=== PATIENT | male | born 1960 | race Caucasian/White ===

== ENCOUNTER 2025-09-18 01:27 | Emergency (ER) | payer BC, OTHER ==
[~2025-09-18] VITALS: Ht 177.8 cm; Wt 105.3 kg
--- NOTE | 2025-09-18 02:23 | ED.PDOC ---
History of Present Illness HPI Comments 64-year-old male who came to ER for bleeding of the right lower extremity. Patient has history of DVTs, currently on Xarelto. Patient taking a shower earlier, and the medial aspect of his right ankle started bleeding profusely. Patient states he has not taken his Xarelto for the last 2 days because of epistaxis Chief Complaint: Lower Extremity Time Seen by MD: 02:23 Reviewed Notes: Nurses Notes Allergies: Coded Allergies: Minocycline (Verified Allergy, Unknown, 09/18/25) Information Source: Patient Mode of Arrival: Ambulatory Past Medical History Past Medical History (Other): DVT Surgical History (Other): Bilateral knee, and bilateral hip surgery Family History Family History: Reviewed,noncontributory to illness Social History Smoker: Non-Smoker Alcohol: Denies ETOH Use Drugs: Denies Drug Use Lives In: Home Constitutional: denies: chills, diaphoresis, fatigue, fever, malaise, sweats, weakness, others EENTM: denies: blurred vision, double vision, ear bleeding, ear discharge, ear drainage, ear pain, ear ringing, eye pain, eye redness, hearing loss, mouth pa in, mouth swelling, nasal discharge, nose bleeding, nose congestion, nose pain, photophobia, tearing, throat pain, throat swelling, voice changes, others Respiratory: denies: cough, hemoptysis, orthopnea, SOB at rest, shortness of breath, SOB with excertion, stridor, wheezing, others Cardiovascular: denies: chest pain, dizzy spells, diaphoresis, Dyspnea on exertion, edema, irregular heart beat, left arm pain, lightheadedness, palpitations, PND, syncope, others Gastrointestinal: denies: abdomen distended, abdominal pain, blood streaked bowels, constipated, diarrhea, dysphagia, difficulty swallowing, hematemesis, melena, nausea, poor appetite, poor fluid intake, rectal bleeding, rectal pain, vomiting, others Genitourinary: denies: burning, dysuria, flank pain, frequency, hematuria, incontinence, penile discharge, penile sore, pain, testicle pain, testicle swelling, urgency, others Neurological: denies: dizziness, fainting, headache, left sided numbness, left sided weakness, numbness, paresthesia, pre-existing deficit, right sided numbness, right sided weakness, seizure, speech problems, tingling, tremors, weakness, others Musculoskeletal: denies: back pain, gout, joint pain, joint swelling, muscle pain, muscle stiffness, neck pain, others Integumetry: reports: others (Bleeding medial aspect right ankle); denies: bruises, change in color, change in hair/nails, dryness, laceration, lesions, lumps, rash, wounds Allergic/Immunocompromised: denies: Difficulty Healing, Frequent Infections, Hives, Itching, others Hematologic/Lymphatic: denies: anemia, blood clots, easy bleeding, easy bruising, swollen glands, others Endocrine: denies: excessive hunger, excessive sweating, excessive thirst, excessive urination, flushing, intolerance to cold, intolerance to heat, unexplained weight gain, unexplained weight loss, others Psychiatric: denies: anxiety, bipolar disorder, depression, hopeless, panic disorder, schizophrenia, sleepless, suicidal, others Physical Exam General Appearance: No Apparent Distress, Normal HEENT: Normal ENT Inspection, Pharynx Normal, TMs Normal Neck: Full Range of Motion, Non-Tender, Normal, Normal Inspection Respiratory: Chest Non-Tender, Lungs Clear, No Accessory Muscle Use, No Respiratory Distress, Normal Breath Sounds Cardiovascular: No Edema, No JVD, No Murmur, No Gallop, Normal Peripheral Pulses, Regular Rate/Rhythm Breast Exam: Deferred Gastrointestinal: No Organomegaly, Non Tender, No Pulsatile Mass, Normal Bowel Sounds, Soft Genitalia: Deferred Pelvic: Deferred Rectal: Deferred Extremities: No calf tenderness, Normal capillary refill, Normal inspection, Normal range of motion, Non-tender, No pedal edema, Other (Bleeding medial aspect right ankle) Musculoskeletal : Apperance: Normal Neurologic: Alert, distribution supervisor II-XII nml as Tested, No Motor Deficits, Normal Affect, Normal Mood, No Sensory Deficits Cerebellar Function: Normal Reflexes: Normal Skin: Dry, Normal Color, Warm Lymphatic: No Adenopathy Was a procedure done? Was a procedure done?: Yes Sedation Sedation?: No Informed consent obtained: Yes Laceration Repair : Location right ankle Length 1 mm Anesthetic: Lidocaine, With epi Laceration Repair Prep: Betadine Laceration Repair Wound Comple: epidermis/dermis repair Laceration Repair: Number of sutures (1), Skin, SQ, Prolene, Mattress sutures Informed consent obtained: Yes Risks, benefits, and alternati: Yes Differential Dx Considerations may include: Anemia, electrolyte imbalance, varicose veins X-Ray, Labs, Meds, VS Vital Signs Date Time Temp Pulse Resp B/P (MAP) Pulse Ox O2 Delivery O2 Flow Rate FiO2 09/18/25 02:40 61 13 95 Room Air* 0 21 09/18/25 02:40 97.9 61 13 113/67 (82) 95 97.9 09/18/25 01:30 97.9 69 16 124/86 96 97.9 Time of 1ST Reevaluation: 02:19 Reevaluation 1ST: Unchanged Patient Education/Counseling: Diagnosis, Treatment Family Education/Counseling: No Family Present SEPSIS Sepsis Screen Date sepsis recognized/suspect: Sep 18, 2025 Time Sepsis recognized/suspect: 0132 Recent Procedure: No On Antibiotic Therapy: No Respiratory Rate >20: No Heart Rate >90: No Temp<36 C (96.8 F) or >38.3 C: No SBP <90 or MAP <65 mmHG: No New Acute Mental Status Change: No Is the patient on CPAP, BIPAP,: No Physician Orders Laceration Setup (09/18/25 ) Vital Signs Date Time Temp Pulse Resp B/P (MAP) Pulse Ox O2 Delivery O2 Flow Rate FiO2 09/18/25 02:40 61 13 95 Room Air* 0 21 09/18/25 02:40 97.9 61 13 113/67 (82) 95 97.9 09/18/25 01:30 97.9 69 16 124/86 96 97.9 Departure 1 Departure Time of Disposition: 03:00 Impression: Primary Impression: Bleeding from varicose veins of right lower extremity Additional Impression: Varicose vein of leg Disposition: 01 HOME / SELF CARE / HOMELESS Condition: Stable Discharged With: Self, Relative Critical Care Note Critical Care Time?: No Stability Stability form required: No Heart Score Heart Score: Heart Score Response (Comments) Value History N/A 0 EKG N/A 0 Age N/A 0 Risk Factors N/A 0 Troponin N/A 0 Total 0 I personally scribed for LISA SEN MD ([email or web address]) on 09/18/25 at 02:23. Electronically submitted by Jeffrey Conner ([email or web address]). LISA SEN MD Sep 18, 2025 02:23
[2025-09-18 02:40] VITALS: BP 113/67; PULSE 61; RESP 13; TEMP 97.9; O2SAT 95
[2025-09-18] MEDS: LIDOCAINE W/ EPINEPHRINE 1% 20ML VIAL ID ONE (02:41)
== END 2025-09-18 03:07 | disposition home or self-care (01) ==
LOC: ER 01:27
DX: I83.891 Varicose veins of right lower extremity with other complications (principal); Z79.01 Long term (current) use of anticoagulants; Z86.718 Personal history of other venous thrombosis and embolism; Z79.899 Other long term (current) drug therapy
CPT/HCPCS: 12001; 99282; A4649; 12031

== ENCOUNTER 2025-10-06 11:40 | Inpatient (IN) | payer BC ==
[~2025-10-06] VITALS: Ht 177.8 cm; Wt 115.0 kg
[2025-10-06 12:00] VITALS: PULSE 84; RESP 12; O2SAT 95
--- NOTE | 2025-10-06 12:08 | ED.PDOC ---
Musculoskeletal HPI Comments This is a 64 year old male presenting to the ED with chief complaint of right leg redness. Patient reports that since Friday, he has been experiencing worsening redness, swelling, pain, and warmth to his right lower leg. Patient relays that he has history of a DVT in his right leg and is currently Xarelto, however, the last 2 days he has not taken it. Patient denies any numbness, weakness, tingling, chest pain, or SOB. Chief Complaint: Lower Extremity Time Seen by MD: 11:52 Reviewed Notes: Nurses Notes, Medications, Allergies Allergies: Coded Allergies: Minocycline (Verified Allergy, Unknown, 09/18/25) Information Source: Patient Mode of Arrival: Ambulatory Location: Right Extremity Location: Leg Timing: Days Prehospital treatment: None Severity: Moderate Able to Move Extremity: Yes Bear Weight: Limited Pain: Moderate Mechanism: Spontaneous Circumstances: Spontaneous Onset of Symptoms: Spontaneous Symptoms: Swelling, Pain, Erythema, Warmth DVT Risk Factors: DVT Past Medical History PAST MEDICAL HISTORY: DM Past Medical History (Other): DVT Surgical History (Other): Bilateral knee replacement, hip replacement Family History Family History: Reviewed,noncontributory to illness Social History Smoker: Non-Smoker Alcohol: Denies ETOH Use Drugs: Denies Drug Use Lives In: Home Constitutional: denies: chills, diaphoresis, fatigue, fever, malaise, sweats, weakness, others EENTM: denies: blurred vision, double vision, ear bleeding, ear discharge, ear drainage, ear pain, ear ringing, eye pain, eye redness, hearing loss, mouth pain, mouth swelling, nasal discharge, nose bleeding, nose congestion, nose pain, photophobia, tearing, throat pain, throat swelling, voice changes, others Respiratory: denies: cough, hemoptysis, orthopnea, SOB at rest, shortness of breath, SOB with excertion, stridor, wheezing, others Cardiovascular: denies: chest pain, dizzy spells, diaphoresis, Dyspnea on exertion, edema, irregular heart beat, left arm pain, lightheadedness, palpitations, PND, syncope, others Gastrointestinal: denies: abdomen distended, abdominal pain, blood streaked bowels, constipated, diarrhea, dysphagia, difficulty swallowing, hematemesis, melena, nausea, poor appetite, poor fluid intake, rectal bleeding, rectal pain, vomiting, others Genitourinary: denies: burning, dysuria, flank pain, frequency, hematuria, incontinence, penile discharge, penile sore, pain, testicle pain, testicle swelling, urgency, others Neurological: denies: dizziness, fainting, headache, left sided numbness, left sided weakness, numbness, paresthesia, pre-existing deficit, right sided numbness, right sided weakness, seizure, speech problems, tingling, tremors, weakness, others Musculoskeletal: reports: others (Right leg pain and redness); denies: back pain, gout, joint pain, joint swelling, muscle pain, muscle stiffness, neck pain Integumetry: denies: bruises, change in color, change in hair/nails, dryness, laceration, lesions, lumps, rash, wounds, others Allergic/Immunocompromised: denies: Difficulty Healing, Frequent Infections, Hi ves, Itching, others Hematologic/Lymphatic: denies: anemia, blood clots, easy bleeding, easy bruising, swollen glands, others Endocrine: denies: excessive hunger, excessive sweating, excessive thirst, excessive urination, flushing, intolerance to cold, intolerance to heat, unexplained weight gain, unexplained weight loss, others Psychiatric: denies: anxiety, bipolar disorder, depression, hopeless, panic disorder, schizophrenia, sleepless, suicidal, others All Other Systems: Reviewed and Negative Physical Exam General Appearance: No Apparent Distress, Normal HEENT: Normal ENT Inspection, Pharynx Normal, TMs Normal Neck: Full Range of Motion, Non-Tender, Normal, Normal Inspection Respiratory: Chest Non-Tender, Lungs Clear, No Accessory Muscle Use, No Respiratory Distress, Normal Breath Sounds Cardiovascular: No Edema, No JVD, No Murmur, No Gallop, Normal Peripheral Pulses, Regular Rate/Rhythm Breast Exam: Deferred Gastrointestinal: No Organomegaly, Non Tender, No Pulsatile Mass, Normal Bowel Sounds, Soft Genitalia: Deferred Pelvic: Deferred Rectal: Deferred Extremities: Other (Right lower extremity swelling and ecchmosis) Musculoskeletal : Apperance: Normal Neurologic: Alert, mind reader II-XII nml as Tested, No Motor Deficits, Normal Affect, Normal Mood, No Sensory Deficits Cerebellar Function: Normal Reflexes: Normal Skin: Dry, Normal Color, Warm Lymphatic: No Adenopathy Was a procedure done? Was a procedure done?: No Differential Diagnosis EXT Differential Diagnosis: Cellulitis, Deep Vein Thrombosis X-Ray, Labs, Meds, VS Vital Signs Date Time Temp Pulse Resp B/P (MAP) Pulse Ox O2 Delivery O2 Flow Rate FiO2 10/06/25 12:52 72 14 118/67 10/06/25 12:00 84 12 95 Room Air* 0 21 10/06/25 12:00 98.3 84 12 121/64 (83) 95 98.3 10/06/25 11:42 98.1 81 18 112/70 94 98.1 Lab Test 10/06/25 12:38 Range/Units White Blood Count 8.9 4.4-10.8 10^3/uL Red Blood Count 4.66 4.5-5.90 10^6/uL Hemoglobin 12.8 L 13.5-17.5 g/dL Hematocrit 39.0 L 41.0-53.0 % Mean Corpuscular Volume 83.6 80.0-100.0 fL Mean Corpuscular Hemoglobin 27.5 L 28.0-32.0 pg Mean Corpuscular Hemoglobin Concent 32.9 32.0-36.0 g/dL Red Cell Distribution Width 16.2 H 11.8-14.3 % Platelet Count 165 140-450 10^3/uL Mean Platelet Volume 7.4 6.9-10.8 fL Neutrophils (%) (Auto) 79.1 37.0-80.0 % Lymphocytes (%) (Auto) 8.3 L 10.0-50.0 % Monocytes (%) (Auto) 10.2 0.0-12.0 % Eosinophils (%) (Auto) 1.6 0.0-7.0 % Basophils (%) (Auto) 0.8 0.0-2.0 % Neutrophils # (Auto) 7.0 1.6-8.6 10 ^3/uL Lymphocytes # (Auto) 0.7 0.4-5.4 10 ^3/uL Monocytes # (Auto) 0.9 0-1.3 10 ^3/uL Eosinophils # (Auto) 0.1 0-0.8 10 ^3/uL Basophils # (Auto) 0.1 0-0.2 10 ^3/uL Nucleated Red Blood Cells 0.0 % Prothrombin Time Pending Prothrombin Time INR Pending Activated Partial Thromboplast Time Pending Sodium Level Pending Potassium Level Pending Chloride Level Pending Carbon Dioxide Level Pending Anion Gap Pending Blood Urea Nitrogen Pending Creatinine Pending Glomerular Filtration Rate Calc Pending BUN/Creatinine Ratio Pending Serum Glucose Pending Calcium Level Pending Troponin I High Sensitivity Pending B-Type Natriuretic Peptide Pending Current Medications Medications (Trade) Dose Ordered Sig/Gretta Route Start Time Stop Time Status Last Admin Morphine Sulfate 4 mg ONCE ONCE IV 10/06/25 12:15 10/06/25 12:16 DC 10/06/25 12:52 Ondansetron HCl (Zofran) 4 mg ONCE ONCE IV 10/06/25 12:15 10/06/25 12:16 DC 10/06/25 12:52 Time of 1ST Reevaluation: 12:50 Reevaluation 1ST: Unchanged Patient Education/Counseling: Diagnosis, Treatment Family Education/Counseling: No Family Present Departure 1 Departure Time of Disposition: 13:03 (Patient with a DVT that failed outpatient treatment. We will admit patient for further workup and expert consultation) Impression: Primary Impression: Right leg DVT Disposition: ADMITTED INPATIENT Admit to: Med Surg Condition: Guarded Critical Care Note Critical Care Time?: No Stability Stability form required: No Heart Score Heart Score: Heart Score Response (Comments) Value History N/A 0 EKG N/A 0 Age N/A 0 Risk Factors N/A 0 Troponin N/A 0 Total 0 I personally scribed for JUAN READ MD ([email or web address]) on 10/06/25 at 12:08. Electronically submitted by Christian Dickerson ([email or web address]). JUAN READ MD Oct 06, 2025 12:08
[2025-10-06] MEDS: MORPHINE SULFATE 4 MG/ML SYR/VIAL IV ONE (12:52)
[2025-10-06] MEDS: ONDANSETRON HCL 4 MG/2 ML VIAL IV ONE (12:52)
--- NOTE | 2025-10-06 12:55 | DVH ---
Right lower extremity venous duplex Clinical History: right leg pain Comparison: None Technique: Duplex Doppler evaluation of the deep venous system of the right lower extremity from the common femoral vein to the popliteal vein including color Doppler and spectral/pulsed waveform analysis was performed. Findings: The common femoral vein demonstrates appropriate compressibility and waveform variability. There is compressibility/patency of the great saphenous vein at the proximal thigh. The femoral vein demonstrates intraluminal thrombus and noncompressibility. The deep femoral vein demonstrates appropriate compressibility and waveform variability. The popliteal vein demonstrates intraluminal thrombus and noncompressibility. There is normal compressibility at the tibioperoneal trunk. Impression: Partially occlusive positive thrombus in the superficial femoral vein and popliteal vein.
[2025-10-06 12:56] LABS: Hematocrit 39.0 % (41.0-53.0); Hemoglobin 12.8 g/dL (13.5-17.5); Mean Corpuscular Hemoglobin 27.5 pg (28.0-32.0); Mean Corpuscular Volume 83.6 fL (80.0-100.0); Nucleated Red Blood Cells % 0.0 %
[2025-10-06 13:10] LABS: INR 1.37 (0.9-1.15); Partial Thromboplastin Time 44.8 SEC (24.5-34.5); Prothrombin Time 14.1 sec (9.3-11.8)
[2025-10-06 13:31] LABS: Chloride 102 mmol/L (98-107); Sodium 139 mmol/L (136-145)
[2025-10-06 13:32] LABS: Anion Gap 14 (5-15); Calcium 9.0 mg/dL (8.7-10.4); Carbon Dioxide 23 mmol/L (20-31)
[2025-10-06] MEDS ORDERED: GABA-1250 PO (13:32)
[2025-10-06] MEDS ORDERED: AMLO1TAB23 PO (13:32)
[2025-10-06] MEDS ORDERED: HYDR25TA5 PO (13:32)
[2025-10-06] MEDS ORDERED: TAMS0.4C39 PO (13:32)
[2025-10-06] MEDS ORDERED: ROSU10TA64 PO (13:32)
[2025-10-06] MEDS ORDERED: SERT-160 PO (13:32)
[2025-10-06] MEDS ORDERED: LISI40TA16 PO (13:32)
[2025-10-06 13:37] LABS: BUN/Creatinine Ratio 26.4 (10.0-20.0)
--- NOTE | 2025-10-06 13:38 | DVHHP2 ---
History of Present Illness Reason for Visit: Right leg pain History of Present Illness Hany Bach is a 64-year-old male with past medical history of DVT, diabetes, bilateral knee replacement, partial thyroidectomy, and hip replacement who presents to the ED with right leg pain and redness since Friday. Patient reports that he has a history of DVT in his right leg was taking Xarelto but did not take it for the last 2 days. Patient reports that he developed a DVT after his knee surgery in 1999 at [facility], was given warfarin to take then was switched over to Plavix 5-10 years ago, then change to aspirin then 3 years ago was switched to Xarelto. Patient reports that his primary care physician is Dr. No in [place] at [facility]. Patient reports that he does not have a electrical mechanic. He reports that he uses a cane with ambulation. He also reports that he lives at home alone. Patient reports that his right lower extremity was discolored distance 1999 but the last 2 days he states that it has been getting darker and has noticed it has been getting warmer to the touch. Patient reports that he does not use home oxygen but upon evaluation patient on 2 L nasal cannula. Patient denies any recent trauma or injury, recent sick contacts, recent travels, recent ingestion of spoiled food, chest pain, shortness of breath, fever, chills, lightheadedness, weakness, dizziness, abdominal pain, nausea, vomiting, diarrhea, or urinary symptoms. Endocrine: Diabetes Past Medical History DVT Past Surgical History: Other (Partial thyroidectomy, Bilateral knee replacement and hip replacement) Family History: Cancer, Other (Dad with intestinal cancer and mom with Alzheimer's.) Smoke: No ALCOHOL: none Drugs: None Lives: Alone Domestic Violence: Neg Review of Systems Musculoskeletal: leg pain Skin: Other (Right lower extremity discoloration and warmth) Allergies: Coded Allergies: Minocycline (Verified Allergy, Unknown, 09/18/25) Medications Current Medications Medications Dose Ordered Sig/Gretta Route Start Time Stop Time Status Last Admin Dose Admin Heparin Sodium/ Dextrose 250 ml @ 18.54 mls/ hr [id number] IV 10/06/25 13:15 UNV Exam Vital Signs Vital Signs Date Time Temp Pulse Resp B/P (MAP) Pulse Ox O2 Delivery O2 Flow Rate FiO2 10/06/25 12:52 72 14 118/67 10/06/25 12:00 95 Room Air* 0 21 10/06/25 12:00 98.3 98.3 General Appearance: Alert, Oriented X3, Cooperative, No acute distress HEENT: Atraumatic, PERRLA, EOMI Respiratory: Clear to auscultation, Normal air movement Cardiovascular: Regular rate, Normal S1, Normal S2 Abdominal: Normal bowel sounds, Soft Extremities: No cyanosis Neuro: Normal speech, Sensation intact Psych/Mental Status: Mental status NL, Mood NL Labs/Xrays Labs Test 10/06/25 12:38 Range/Units White Blood Count 8.9 4.4-10.8 10^3/uL Red Blood Count 4.66 4.5-5.90 10^6/uL Hemoglobin 12.8 L 13.5-17.5 g/dL Hematocrit 39.0 L 41.0-53.0 % Mean Corpuscular Volume 83.6 80.0-100.0 fL Mean Corpuscular Hemoglobin 27.5 L 28.0-32.0 pg Mean Corpuscular Hemoglobin Concent 32.9 32.0-36.0 g/dL Red Cell Distribution Width 16.2 H 11.8-14.3 % Platelet Count 165 140-450 10^3/uL Mean Platelet Volume 7.4 6.9-10.8 fL Neutrophils (%) (Auto) 79.1 37.0-80.0 % Lymphocytes (%) (Auto) 8.3 L 10.0-50.0 % Monocytes (%) (Auto) 10.2 0.0-12.0 % Eosinophils (%) (Auto) 1.6 0.0-7.0 % Basophils (%) (Auto) 0.8 0.0-2.0 % Neutrophils # (Auto) 7.0 1.6-8.6 10 ^3/uL Lymphocytes # (Auto) 0.7 0.4-5.4 10 ^3/uL Monocytes # (Auto) 0.9 0-1.3 10 ^3/uL Eosinophils # (Auto) 0.1 0-0.8 10 ^3/uL Basophils # (Auto) 0.1 0-0.2 10 ^3/uL Nucleated Red Blood Cells 0.0 % Right lower extremity venous duplex Clinical History: right leg pain Comparison: None Technique: Duplex Doppler evaluation of the deep venous system of the right lower extremity from the common femoral vein to the popliteal vein including color Doppler and spectral/pulsed waveform analysis was performed. Findings: The common femoral vein demonstrates appropriate compressibility and waveform variability. There is compressibility/patency of the great saphenous vein at the proximal thigh. The femoral vein demonstrates intraluminal thrombus and noncompressibility. The deep femoral vein demonstrates appropriate compressibility and waveform variability. The popliteal vein demonstrates intraluminal thrombus and noncompressibility. There is normal compressibility at the tibioperoneal trunk. Impression: Partially occlusive positive thrombus in the superficial femoral vein and popliteal vein. SEPSIS Sepsis Screen Date sepsis recognized/suspect: Oct 06, 2025 Time Sepsis recognized/suspect: 1200 Recent Procedure: No On Antibiotic Therapy: No Respiratory Rate >20: No Heart Rate >90: No Temp<36 C (96.8 F) or >38.3 C: No SBP <90 or MAP <65 mmHG: No New Acute Mental Status Change: No Is the patient on CPAP, BIPAP,: No Physician Orders PTPTT (10/06/25 12:10) Basic Metabolic Panel (10/06/25 12:10) Troponin-I Hs (10/06/25 12:10) B-Type Natriuretic Peptide (10/06/25 12:10) Rt Lower Dvt (10/06/25 12:10) Platelet Monitoring (10/06/25 13:01) Vte Protocol Initiated (10/06/25 13:01) Heparin Per Standardized Proce (10/06/25 13:01) Discontinue All Im Injections (10/06/25 13:01) Partial Thromboplastin Time (10/06/25 13:01) Heparin Sodium (Porcine) (10/06/25 13:15) Heparin Drip/D5w 100units/Ml (10/06/25 13:15) Npo (Nothing By Mouth) Diet (10/06/25 Lunch) Obtain: (10/06/25 13:01) Consult Vascular/Endovascular (10/06/25 13:01) Vital Signs Date Time Temp Pulse Resp B/P (MAP) Pulse Ox O2 Delivery O2 Flow Rate FiO2 10/06/25 12:52 72 14 118/67 10/06/25 12:00 84 12 95 Room Air* 0 21 10/06/25 12:00 98.3 84 12 121/64 (83) 95 98.3 10/06/25 11:42 98.1 81 18 112/70 94 98.1 Laboratory Tests Test 10/06/25 12:38 White Blood Count 8.9 10^3/uL (4.4-10.8) Medications Medications Dose Ordered Sig/Gretta Route Start Time Stop Time Status Last Admin Dose Admin Morphine Sulfate 4 mg ONCE ONCE IV 10/06/25 12:15 10/06/25 12:16 DC 10/06/25 12:52 4 MG Ondansetron HCl 4 mg ONCE ONCE IV 10/06/25 12:15 10/06/25 12:16 DC 10/06/25 12:52 4 MG Assessment/Plan Assessment/Plan Assessment Right lower extremity pain secondary to DVT Acute hypoxic respiratory failure on supplemental oxygen Rule out PAD Obesity History of diabetes History of bilateral knee replacement History of hip replacement History of partial thyroidectomy Plan Admit to same day surgery center Supplemental O2, wean as tolerated Antiemetics Pain management Heparin started in ED, heparin drip Hemoglobin A1c ISS and Accu-Cheks Arterial duplex ordered NPO IV fluids Home medications reconciled DVT prophylaxis-heparin drip PUD prophylaxis-not indicated history of GERD or GI bleed Discussed plan of care with patient and nurse Vascular consulted by ED Counseled patient on lifestyle modifications, diet, and exercise [id number] Preventive counseling healthy eating habits, physical activity, and regular checkups Plan discussed with: Patient Date of Service: Oct 06, 2025 Billing Provider: JOON PINZON Common Visit Codes: 66738-ALOVRBV INP/OBS CARE (HIGH) Secondary Visit Codes: 59435-[id number] COUNSELING IND JOON PINZON Oct 06, 2025 13:37
[2025-10-06 13:45] LABS: Blood Urea Nitrogen 28 mg/dL (9-23); Glucose 163 mg/dL (74-106); Potassium 3.4 mmol/L (3.5-5.1)
[2025-10-06] MEDS ORDERED: DEXTROSE (50%) 50ML SYRG IV PRN (13:45)
[2025-10-06] MEDS: HEPARIN SODIUM (PORCINE) 5000 UNITS/ML 1ML VIAL IV ONE (13:57)
[2025-10-06] MEDS: HEPARIN DRIP/D5W 100UNITS/ML 250 ML IV SCH ×2 (14:06→22:39)
[2025-10-06 15:27] LABS: Urine Protein, UAD Negative (Negative)
[2025-10-06] MEDS: SODIUM CHLORIDE 0.9% 1,000 ML IV SCH (15:33)
[2025-10-06 15:36] LABS: Benzodiazephine Screen, Urine Neg (NEGATIVE)
[2025-10-06 15:37] LABS: Amphetamine Screen, Urine Neg (NEGATIVE); Barbiturate Scree,Urine Neg (NEGATIVE); Cannabinoid Screen, Urine Pos (NEGATIVE); Cocaine Screen, Urine Neg (NEGATIVE); Opiate Scree,Urine Neg (NEGATIVE); Phencyclidine Screen, Urine Neg (NEGATIVE)
[2025-10-06] MEDS: InsuLIN REG 1unit/0.01ml Soln (100units/ml) SC SCH (18:00)
[2025-10-06] MEDS: ACCU-CHEK COMFORT CURVE STRIP VI SCH (18:13)
--- NOTE | 2025-10-06 18:18 | DVH ---
Indication: r/o pad Technique: Real- time ultrasound images of the lower extremity with grayscale, color, and spectral wave Doppler. Comparison: None Findings: Biphasic/ triphasic waveforms right CRAB CATCHER, SFA, popliteal, anterior tibial, dorsalis pedis arteries. Right inguinal lymph node with fatty hilum measuring 3.8 x 1.3 cm. Peak systolic velocities are as follows (in cm/s): Right: Common femoral artery: 124 Profunda femoris: 60 Proximal superficial femoral: 109 Mid superficial femoral artery: 109 Distal superficial femoral artery: 117 Popliteal artery: 94 Posterior tibial artery: 76 Anterior tibial artery: 65 Dorsalis pedis artery: 80 Posterior tibial: 134 Impression: No hemodynamically significant stenosis in the right lower extremity. Right inguinal lymphadenopathy.
[2025-10-06] MEDS: ONDANSETRON HCL 4 MG/2 ML VIAL IV PRN (18:29)
[2025-10-06] MEDS: MORPHINE SULFATE INJ 2 MG/ml SYRG IV PRN (18:30)
[2025-10-06 19:00] VITALS: BP 127/75; PULSE 64; RESP 18; TEMP 98; O2SAT 95
[2025-10-06] MEDS ORDERED: LEVO125T7 PO (19:58)
[2025-10-06] MEDS ORDERED: OMEP20TA PO (20:00)
[2025-10-06 20:11] VITALS: PULSE 64; RESP 18; O2SAT 95
[2025-10-06 21:00] VITALS: BP 117/83; PULSE 63; RESP 18; TEMP 98.3; O2SAT 93
[2025-10-06] MEDS: ATORVASTATIN 20 MG TAB PO SCH (21:31)
[2025-10-06] MEDS: TAMSULOSIN HYDROCHLORIDE 0.4 MG CAP PO ONE (21:31)
[2025-10-06 21:51] LABS: INR 1.14 (0.9-1.15); Prothrombin Time 11.9 sec (9.3-11.8)
[2025-10-06 22:21] LABS: Partial Thromboplastin Time 75.9 SEC (24.5-34.5)
[2025-10-07] VITALS (8 sets, daily range): BP systolic 115–132; BP diastolic 50–88; PULSE 62–76; RESP 17–20; TEMP 97.8–98.4; O2SAT 90–98
[2025-10-07] MEDS: HYDROcodone-ACET 5/325MG TAB PO PRN (01:02)
[2025-10-07] MEDS: LEVOTHYROXINE SODIUM 50 MCG TAB PO SCH (06:01)
[2025-10-07 06:08] LABS: Hematocrit 39.6 % (41.0-53.0); Hemoglobin 13.3 g/dL (13.5-17.5); Mean Corpuscular Hemoglobin 27.9 pg (28.0-32.0); Mean Corpuscular Volume 83.4 fL (80.0-100.0); Nucleated Red Blood Cells % 0.0 %
[2025-10-07 06:24] LABS: INR 1.11 (0.9-1.15); Partial Thromboplastin Time 50.7 SEC (24.5-34.5); Prothrombin Time 11.6 sec (9.3-11.8)
[2025-10-07 06:38] LABS: Alanine Aminotransferase 19 U/L (7-40); Albumin 4.0 g/dL (3.2-4.8); Alkaline Phosphatase 76 U/L (46-116); Anion Gap 12 (5-15); BUN/Creatinine Ratio 25.0 (10.0-20.0); Bilirubin, Total 0.6 mg/dL (0.2-1.0); Blood Urea Nitrogen 21 mg/dL (9-23); Calcium 9.0 mg/dL (8.7-10.4); Carbon Dioxide 25 mmol/L (20-31); Chloride 102 mmol/L (98-107); Glucose 94 mg/dL (74-106); Potassium 3.5 mmol/L (3.5-5.1); Sodium 139 mmol/L (136-145); Total Protein 7.4 g/dL (5.7-8.2)
[2025-10-07] MEDS: TAMSULOSIN HYDROCHLORIDE 0.4 MG CAP PO SCH (08:21)
[2025-10-07] MEDS: GABAPENTIN 300 MG CAP PO SCH (09:45)
[2025-10-07] MEDS: hydroCHLOROthiazide 25 MG TAB PO SCH (09:46)
[2025-10-07] MEDS: LISINOPRIL 20 MG TAB PO SCH (09:46)
[2025-10-07] MEDS: SERTRALINE HCL 50 MG TAB PO SCH (09:46)
[2025-10-07] MEDS ORDERED: TAMSULOSIN HYDROCHLORIDE 0.4 MG CAP PO SCH (10:00)
[2025-10-07] MEDS ORDERED: PATIENTS OWN MEDICATION (Amlodipine Besylate 1 TAB) PO SCH (10:00)
[2025-10-07] MEDS ORDERED: PATIENTS OWN MEDICATION (Lisinopril 1 TAB) PO SCH (10:00)
[2025-10-07] MEDS ORDERED: PATIENTS OWN MEDICATION (Sertraline Hcl 1 TAB) PO SCH (10:00)
[2025-10-07 12:29] LABS: INR 1.05 (0.9-1.15); Partial Thromboplastin Time 47.1 SEC (24.5-34.5); Prothrombin Time 11.1 sec (9.3-11.8)
--- NOTE | 2025-10-07 13:01 | CONS ---
Pharmacy Clinical Information: INCREASE HEPARIN RATE TO 18 ML/HR DUE TO APTT OF 47.1 ON 10/07 1035 PER RX P ROTOCOL. NEXT APTT 6 HOURS FROM THE START OF NEW HEPARIN RATE. DILMA HENDERSON CONFIRMED AND READ BACK HEDY SHARP PHARMACIST Oct 07, 2025 13:01
[2025-10-07] MEDS: HEPARIN DRIP/D5W 100UNITS/ML 250 ML IV SCH ×2 (13:06→23:45)
--- NOTE | 2025-10-07 17:14 | DVHPNRES ---
Progress Note Date Seen: Oct 07, 2025 Resident Creating Document: SOCORRO ALMODOVAR RESIDENT Medical Necessity Reason Pt with a Central, PICC or Fol: No Subjective Review of Systems PowerHany is a 64-year-old male with past medical history of DVT in 1999 and in 2014 now on Xarelto, diabetes mellitus, hypertension, dyslipidemia, depression presented with complaints of pain and swelling in the right lower limb since Friday. He had a swelling in the right groin initially. Patient says that he put a compression stocking in and when he removed 2 days later he noticed the redness and swelling in the calf. He had an episode of epistaxis and bleeding from the foot in the past week so he had stopped the Xarelto PMHx: Xarelto, diabetes mellitus, hypertension, dyslipidemia, depression PSHx: Thyroidectomy, knee and hip replacement Family history: cancer in father Social history: denies smoking alcohol or drug use Allergic history: minocycline General: patient denies fever, fatigue, weaknes, sweating, any recent changes in appetite and weight HEENT: No headaches, visiual changes, hearing loss, tinnitus, nasal congestion and discharge, and sore throat. Cardiovascular: Denies chest pain, palpitations, dyspnea on exertion, orthopnea, or claudication. Respiratory: No cough, and wheezing. Gastrointestinal: Denies nausea, vomiting, dysphagia, odynophagia, heartburn, abdominal pain, flatulence, bloating, diarrhea, constipation, change in stool, or blood in stool. Genitourinary: No dysuria, hematuria, discharge, frequency, urgency, nocturia, incontinence, and urinary retention. Endocrine: No heat or cold intolerance, polydipsia, polyuria, and polyphagia. Neurological: No dizziness, extremity weakness and numbness, tremors, gait disturbance, seizures, and memory impairment. Psychiatric: Denies depression, anxiety,or insomnia. Musculoskeletal: complains of pain and swelling in the right leg Skin: No rashes, itching, skin lesion, changes in hair, nail, skin texture and breast. Hematologic/Lymphatic: Denies easy bruising, bleeding tendencies, or lymph node enlargement. Objective vital signs Vital Sign Date Time Temp Pulse Resp B/P (MAP) Pulse Ox O2 Delivery O2 Flow Rate FiO2 10/07/25 12:57 98.2 67 17 116/75 (89) 93 98.2 10/07/25 08:28 Room Air* 0 21 Total Intake and Output 10/06/25 10/06/25 10/07/25 15:00 23:00 07:00 Intake Total 315 ml 80 ml Output Total 400 ml 400 ml Balance -85 ml -320 ml medications Current Medications Medications Dose Ordered Sig/Gretta Route Start Time Stop Time Status Last Admin Dose Admin Diagnostic Test (Pha) 1 strip Q6HR 10/06/25 18:00 10/07/25 11:56 1 STRIP Insulin Human Regular Q6HR SC 10/06/25 18:00 Dextrose 50 ml UD PRN IV 10/06/25 13:45 Acetaminophen/ Hydrocodone Bitart 1 tab Q4HP PRN PO 10/06/25 13:45 10/07/25 12:00 1 TAB Ondansetron HCl 4 mg Q4HP PRN IV 10/06/25 13:45 10/06/25 18:29 4 MG Acetaminophen 650 mg Q6HP PRN PO 10/06/25 13:45 Morphine Sulfate 2 mg Q4HPRN PRN IV 10/06/25 13:45 10/06/25 18:30 2 MG Gabapentin 300 mg DAILY PO 10/07/25 10:00 10/07/25 09:45 300 MG Hydrochlorothiazide 25 mg DAILY PO 10/07/25 10:00 10/07/25 09:46 25 MG Patient Own Medication 1 tab DAILY PO 10/07/25 10:00 UNV Patient Own Medication 1 tab DAILY PO 10/07/25 10:00 UNV Patient Own Medication 1 tab DAILY PO 10/07/25 10:00 UNV Atorvastatin Calcium 10 mg HS PO 10/06/25 22:00 10/06/25 21:31 10 MG Amlodipine Besylate 10 mg DAILY PO 10/07/25 10:00 10/07/25 09:46 10 MG Lisinopril 40 mg DAILY PO 10/07/25 10:00 10/07/25 09:46 40 MG Sertraline HCl 100 mg DAILY PO 10/07/25 10:00 10/07/25 09:46 100 MG Tamsulosin HCl 0.4 mg BIDPC PO 10/07/25 09:00 10/07/25 08:21 0.4 MG Levothyroxine Sodium 125 mcg QAM@0600 PO 10/07/25 06:00 10/07/25 06:01 125 MCG Heparin Sodium/ Dextrose 250 ml @ 18 mls/hr [id number] IV 10/07/25 13:00 10/07/25 13:06 18 MLS/HR Examination General Appearance: Alert, Oriented X3, Cooperative, No acute distress HEENT: Atraumatic, PERRLA, EOMI, Mucous membrane moist/pink Respiratory: Clear to auscultation, Normal air movement Cardiovascular: Regular rate, Normal S1, Normal S2, No murmurs, no chest wall tenderness Abdominal: Normal bowel sounds, Soft, No tenderness, No hepatospenomegaly, No masses Extremities: tenderness in the calf Skin: No rashes, No breakdown, No significant lesion Neuro: Normal gait, Normal speech, Strength at 5/5 X4 ext, Normal tone, Sensation intact, Cranial nerves 3-12 NL, Reflexes 2+ Psych/Mental Status: Mental status NL, Mood NL laboratory and microbiology Laboratory Tests 10/07/25 05:33 Test 10/07/25 05:33 Range/Units Serum Glucose 94 74-106 mg/dL Problem List/Assessment/Plan Problem List/Assessment/Plan Assessment and plan DVT Acute hypoxic respiratory failure on supplemental oxygen Ruled out PAD Ruled out PE Admit to med surge telemetry No compressions in the leg Heparin drip Negative CT pulmonary angiography Supplemental O2, wean as tolerated Antiemetics Pain management Heparin started in ED, heparin drip Hemoglobin A1c ISS and Accu-Cheks Arterial duplex ordered NPO IV fluids Obesity Counseled on the importance of weight loss, exercise and dietary regimen Dyslipidemia Continue home medications Essential hypertension Continue home medications Target in-hospital blood pressure below 140/90 Type 2 diabetes mellitus Target in-hospital blood glucose between 140-180 Follow blood glucose levels History of bilateral knee replacement History of hip replacement Outpatient follow up with PCP on discharge History of partial thyroidectomy Outpatient follow up with PCP on discharge Goals of care discussed full code Case discussed with Dr. Whipple Plan discussed with: Patient Date of Service: Oct 07, 2025 Billing Provider: STEF LI MD Common Visit Codes: [id number] INP/OBS CARE(HIGH) SOCORRO ALMODOVAR RESIDENT Oct 07, 2025 17:14
[2025-10-07 19:36] LABS: INR 1.01 (0.9-1.15); Partial Thromboplastin Time 39.3 SEC (24.5-34.5); Prothrombin Time 10.7 sec (9.3-11.8)
[2025-10-08] VITALS (8 sets, daily range): BP systolic 112–131; BP diastolic 66–81; PULSE 59–77; RESP 17–20; TEMP 98–98.6; O2SAT 91–95
[2025-10-08] MEDS: TEMAZEPAM 15 MG CAP ONE (00:05)
[2025-10-08] MEDS: KETOROLAC TROMETH 30 MG/ML 1ML VIAL ONE (00:05)
[2025-10-08] MEDS: TEMAZEPAM 15 MG CAP PO PRN (00:08)
[2025-10-08] MEDS: KETOROLAC TROMETH 30 MG/ML 1ML VIAL IV ONE (00:09)
[2025-10-08 05:41] LABS: Hematocrit 37.0 % (41.0-53.0); Hemoglobin 12.2 g/dL (13.5-17.5); Mean Corpuscular Hemoglobin 27.7 pg (28.0-32.0); Mean Corpuscular Volume 84.0 fL (80.0-100.0); Nucleated Red Blood Cells % 0.0 %
[2025-10-08 05:51] LABS: INR 1.0 (0.9-1.15); Partial Thromboplastin Time 53.0 SEC (24.5-34.5); Prothrombin Time 10.6 sec (9.3-11.8)
[2025-10-08 06:03] LABS: Alanine Aminotransferase 18 U/L (7-40); Albumin 3.7 g/dL (3.2-4.8); Alkaline Phosphatase 74 U/L (46-116); Anion Gap 8 (5-15); BUN/Creatinine Ratio 19.8 (10.0-20.0); Bilirubin, Total 0.3 mg/dL (0.2-1.0); Blood Urea Nitrogen 22 mg/dL (9-23); Calcium 8.6 mg/dL (8.7-10.4); Carbon Dioxide 27 mmol/L (20-31); Chloride 101 mmol/L (98-107); Glucose 179 mg/dL (74-106); Potassium 3.3 mmol/L (3.5-5.1); Sodium 136 mmol/L (136-145); Total Protein 6.9 g/dL (5.7-8.2)
[2025-10-08 12:04] LABS: INR 1.03 (0.9-1.15); Partial Thromboplastin Time 62.3 SEC (24.5-34.5); Prothrombin Time 10.9 sec (9.3-11.8)
[2025-10-08] MEDS: POTASSIUM EFFERVESENT TAB 25 MEQ PO ONE (13:35)
[2025-10-08] MEDS: POTASSIUM EFFERVESENT TAB 25 MEQ ONE (13:35)
--- NOTE | 2025-10-08 15:26 | DVHPNRES ---
Progress Note Date Seen: Oct 08, 2025 Resident Creating Document: SOCORRO ALMODOVAR Medical Necessity Reason Pt with a Central, PICC or Fol: No Subjective Review of Systems Patient seen at bedside. Requesting for meloxicam. Difficulty ambulating, PT evaluation pending. On heparin drip. Plan to start Cymbalta if pain not under control tomorrow. Hany Bach is a 64-year-old male with past medical history of DVT in 1999 and in 2014 now on Xarelto, diabetes mellitus, hypertension, dyslipidemia, depression presented with complaints of pain and swelling in the right lower limb since Friday. He had a swelling in the right groin initially. Patient says that he put a compression stocking in and when he removed 2 days later he noticed the redness and swelling in the calf. He had an episode of epistaxis and bleeding from the foot in the past week so he had stopped the Xarelto PMHx: Xarelto, diabetes mellitus, hypertension, dyslipidemia, depression PSHx: Thyroidectomy, knee and hip replacement Family history: cancer in father Social history: denies smoking alcohol or drug use Allergic history: minocycline General: patient denies fever, fatigue, weaknes, sweating, any recent changes in appetite and weight HEENT: No headaches, visiual changes, hearing loss, tinnitus, nasal congestion and discharge, and sore throat. Cardiovascular: Denies chest pain, palpitations, dyspnea on exertion, orthopnea, or claudication. Respiratory: No cough, and wheezing. Gastrointestinal: Denies nausea, vomiting, dysphagia, odynophagia, heartburn, abdominal pain, flatulence, bloating, diarrhea, constipation, change in stool, or blood in stool. Genitourinary: No dysuria, hematuria, discharge, frequency, urgency, nocturia, incontinence, and urinary retention. Endocrine: No heat or cold intolerance, polydipsia, polyuria, and polyphagia. Neurological: No dizziness, extremity weakness and numbness, tremors, gait disturbance, seizures, and memory impairment. Psychiatric: Denies depression, anxiety,or insomnia. Musculoskeletal: complains of pain and swelling in the right leg Skin: No rashes, itching, skin lesion, changes in hair, nail, skin texture and breast. Hematologic/Lymphatic: Denies easy bruising, bleeding tendencies, or lymph node enlargement. Objective vital signs Vital Sign Date Time Temp Pulse Resp B/P (MAP) Pulse Ox O2 Delivery O2 Flow Rate FiO2 10/08/25 13:00 98.3 65 17 129/73 (91) 92 98.3 10/08/25 08:05 Room Air* 0 21 Total Intake and Output 10/07/25 10/07/25 10/08/25 15:00 23:00 07:00 Intake Total 504 ml 1890 ml 250 ml Output Total 400 ml Balance 504 ml 1890 ml -150 ml medications Current Medications Medications Dose Ordered Sig/Gretta Route Start Time Stop Time Status Last Admin Dose Admin Diagnostic Test (Pha) 1 strip Q6HR 10/06/25 18:00 10/08/25 12:00 1 STRIP Insulin Human Regular Q6HR SC 10/06/25 18:00 10/08/25 12:00 2 UNITS Dextrose 50 ml UD PRN IV 10/06/25 13:45 Acetaminophen/ Hydrocodone Bitart 1 tab Q4HP PRN PO 10/06/25 13:45 10/08/25 13:35 1 TAB Ondansetron HCl 4 mg Q4HP PRN IV 10/06/25 13:45 10/06/25 18:29 4 MG Acetaminophen 650 mg Q6HP PRN PO 10/06/25 13:45 Morphine Sulfate 2 mg Q4HPRN PRN IV 10/06/25 13:45 10/08/25 05:19 2 MG Gabapentin 300 mg DAILY PO 10/07/25 10:00 10/08/25 09:21 300 MG Hydrochlorothiazide 25 mg DAILY PO 10/07/25 10:00 10/08/25 09:22 25 MG Patient Own Medication 1 tab DAILY PO 10/07/25 10:00 UNV Patient Own Medication 1 tab DAILY PO 10/07/25 10:00 UNV Patient Own Medication 1 tab DAILY PO 10/07/25 10:00 UNV Atorvastatin Calcium 10 mg HS PO 10/06/25 22:00 10/07/25 23:53 10 MG Amlodipine Besylate 10 mg DAILY PO 10/07/25 10:00 10/08/25 09:23 10 MG Lisinopril 40 mg DAILY PO 10/07/25 10:00 10/08/25 09:23 40 MG Sertraline HCl 100 mg DAILY PO 10/07/25 10:00 10/08/25 09:24 100 MG Tamsulosin HCl 0.4 mg BIDPC PO 10/07/25 09:00 10/08/25 09:21 0.4 MG Levothyroxine Sodium 125 mcg QAM@0600 PO 10/07/25 06:00 10/08/25 05:13 125 MCG Temazepam 15 mg HSPRN PRN PO 10/07/25 22:15 10/08/25 00:08 15 MG Heparin Sodium/ Dextrose 250 ml @ 20 mls/hr [id number] IV 10/07/25 23:00 10/08/25 05:40 20 MLS/HR Pantoprazole Sodium 40 mg DAILY@0600 PO 10/09/25 06:00 Examination General Appearance: Alert, Oriented X3, Cooperative, No acute distress HEENT: Atraumatic, PERRLA, EOMI, Mucous membrane moist/pink Respiratory: Clear to auscultation, Normal air movement Cardiovascular: Regular rate, Normal S1, Normal S2, No murmurs, no chest wall tenderness Abdominal: Normal bowel sounds, Soft, No tenderness, No hepatospenomegaly, No masses Extremities: tenderness in the calf Skin: No rashes, No breakdown, No significant lesion Neuro: Normal gait, Normal speech, Strength at 5/5 X4 ext, Normal tone, Sensation intact, Cranial nerves 3-12 NL, Reflexes 2+ Psych/Mental Status: Mental status NL, Mood NL laboratory and microbiology Laboratory Tests 10/08/25 04:55 Test 10/08/25 04:55 Range/Units Serum Glucose 179 H 74-106 mg/dL Problem List/Assessment/Plan Problem List/Assessment/Plan Assessment and plan DVT Acute hypoxic respiratory failure on supplemental oxygen Ruled out PAD Ruled out PE Admit to med surge telemetry No compressions in the leg Heparin drip Negative CT pulmonary angiography Supplemental O2, wean as tolerated Antiemetics Pain management Heparin started in ED, heparin drip Hemoglobin A1c ISS and Accu-Cheks Arterial duplex ordered NPO IV fluids Meloxicam PT eval Obesity Counseled on the importance of weight loss, exercise and dietary regimen Dyslipidemia Continue home medications Essential hypertension Continue home medications Target in-hospital blood pressure below 140/90 Type 2 diabetes mellitus Target in-hospital blood glucose between 140-180 Follow blood glucose levels History of bilateral knee replacement History of hip replacement Outpatient follow up with PCP on discharge History of partial thyroidectomy Outpatient follow up with PCP on discharge Goals of care discussed full code Case discussed with Dr. Whipple Plan discussed with: Patient My Orders My Orders Orders - SOCORRO ALMODOVAR Procedure Category Date Status Time Complete Blood Count LAB 10/09/25 Verified 04:00 Comprehensive LAB 10/09/25 Verified Metabolic Panel 04:00 Pantoprazole Tablet PHA 10/09/25 In Process (Protonix Tablet) 06:00 Pt Request For Service PT 10/08/25 Logged 12:35 Date of Service: Oct 08, 2025 Billing Provider: STEF LI MD Common Visit Codes: [id number] INP/OBS CARE(HIGH) SOCORRO ALMODOVAR Oct 08, 2025 15:26
[2025-10-08 17:54] LABS: INR 1.03 (0.9-1.15); Partial Thromboplastin Time 59.5 SEC (24.5-34.5); Prothrombin Time 10.9 sec (9.3-11.8)
[2025-10-09] VITALS (8 sets, daily range): BP systolic 117–144; BP diastolic 72–88; PULSE 68–74; RESP 16–18; TEMP 97.9–98.6; O2SAT 90–94
[2025-10-09] MEDS: PANTOPRAZOLE 40 MG TAB PO ONE (05:05)
[2025-10-09] MEDS: PANTOPRAZOLE 40 MG TAB PO SCH (05:16)
[2025-10-09 07:17] LABS: Hematocrit 37.1 % (41.0-53.0); Hemoglobin 12.3 g/dL (13.5-17.5); Mean Corpuscular Hemoglobin 27.3 pg (28.0-32.0); Mean Corpuscular Volume 82.7 fL (80.0-100.0); Nucleated Red Blood Cells % 0.0 %
[2025-10-09 07:37] LABS: INR 1.06 (0.9-1.15); Partial Thromboplastin Time 54.4 SEC (24.5-34.5); Prothrombin Time 11.2 sec (9.3-11.8)
[2025-10-09 07:50] LABS: Alanine Aminotransferase 15 U/L (7-40); Alkaline Phosphatase 75 U/L (46-116); Anion Gap 13 (5-15); BUN/Creatinine Ratio 18.6 (10.0-20.0); Blood Urea Nitrogen 16 mg/dL (9-23); Calcium 9.0 mg/dL (8.7-10.4); Carbon Dioxide 27 mmol/L (20-31); Potassium 3.6 mmol/L (3.5-5.1); Sodium 138 mmol/L (136-145); Total Protein 7.3 g/dL (5.7-8.2)
[2025-10-09 07:51] LABS: Albumin 3.9 g/dL (3.2-4.8)
[2025-10-09 07:52] LABS: Bilirubin, Total 0.4 mg/dL (0.2-1.0)
[2025-10-09 07:55] LABS: Chloride 98 mmol/L (98-107); Glucose 126 mg/dL (74-106)
[2025-10-09] MEDS ORDERED: IBUPROFEN 600 MG TAB PO SCH (10:00)
--- NOTE | 2025-10-09 13:49 | DVHPNRES ---
Progress Note Date Seen: Oct 09, 2025 Resident Creating Document: ALISHA DOWNS RESDIENT Medical Necessity Reason Pt with a Central, PICC or Fol: No Subjective Review of Systems Hany Bach is a 64-year-old male with past medical history of DVT in 1999 and in 2014 now on Xarelto, diabetes mellitus, hypertension, dyslipidemia, depression presented with complaints of pain and swelling in the right lower limb since Friday. He had a swelling in the right groin initially. Patient says that he put a compression stocking in and when he removed 2 days later he noticed the redness and swelling in the calf. He had an episode of epistaxis and bleeding from the foot in the past week so he had stopped the Xarelto 10/09, Patient seen and examined at the bedside. Patient is feeling better since yesterday, still complained of mild leg pain. Physical therapy evaluation consulted. Objective vital signs Vital Sign Date Time Temp Pulse Resp B/P (MAP) Pulse Ox O2 Delivery O2 Flow Rate FiO2 10/09/25 12:49 98.3 70 16 144/85 (104) 92 98.3 10/09/25 08:00 Room Air* 0 21 Total Intake and Output 10/08/25 10/08/25 10/09/25 15:00 23:00 07:00 Intake Total 1100 ml 500 ml Balance 1100 ml 500 ml medications Current Medications Medications Dose Ordered Sig/Gretta Route Start Time Stop Time Status Last Admin Dose Admin Diagnostic Test (Pha) 1 strip Q6HR 10/06/25 18:00 10/09/25 12:21 1 STRIP Insulin Human Regular Q6HR SC 10/06/25 18:00 10/09/25 05:28 2 UNITS Dextrose 50 ml UD PRN IV 10/06/25 13:45 Acetaminophen/ Hydrocodone Bitart 1 tab Q4HP PRN PO 10/06/25 13:45 10/09/25 09:21 1 TAB Ondansetron HCl 4 mg Q4HP PRN IV 10/06/25 13:45 10/06/25 18:29 4 MG Acetaminophen 650 mg Q6HP PRN PO 10/06/25 13:45 Morphine Sulfate 2 mg Q4HPRN PRN IV 10/06/25 13:45 10/08/25 20:05 2 MG Hydrochlorothiazide 25 mg DAILY PO 10/07/25 10:00 10/09/25 09:22 25 MG Patient Own Medication 1 tab DAILY PO 10/07/25 10:00 UNV Patient Own Medication 1 tab DAILY PO 10/07/25 10:00 UNV Patient Own Medication 1 tab DAILY PO 10/07/25 10:00 UNV Atorvastatin Calcium 10 mg HS PO 10/06/25 22:00 10/08/25 23:04 10 MG Amlodipine Besylate 10 mg DAILY PO 10/07/25 10:00 10/09/25 09:22 10 MG Lisinopril 40 mg DAILY PO 10/07/25 10:00 10/09/25 09:22 40 MG Sertraline HCl 100 mg DAILY PO 10/07/25 10:00 10/09/25 09:22 100 MG Tamsulosin HCl 0.4 mg BIDPC PO 10/07/25 09:00 10/09/25 09:22 0.4 MG Levothyroxine Sodium 125 mcg QAM@0600 PO 10/07/25 06:00 10/09/25 05:15 125 MCG Temazepam 15 mg HSPRN PRN PO 10/07/25 22:15 10/08/25 23:04 15 MG Heparin Sodium/ Dextrose 250 ml @ 20 mls/hr [id number] IV 10/07/25 23:00 10/08/25 17:37 20 MLS/HR Pantoprazole Sodium 40 mg DAILY@0600 PO 10/09/25 06:00 10/09/25 05:16 40 MG Gabapentin 300 mg BID PO 10/09/25 22:00 Examination General Appearance: Alert, Oriented X3, Cooperative, No acute distress HEENT: Atraumatic, PERRLA, EOMI, Mucous membrane moist/pink Respiratory: Clear to auscultation, Normal air movement Cardiovascular: Regular rate, Normal S1, Normal S2, No murmurs, no chest wall tenderness Abdominal: Normal bowel sounds, Soft, No tenderness, No hepatospenomegaly, No masses Extremities: tenderness in the calf Skin: No rashes, No breakdown, No significant lesion Neuro: Normal gait, Normal speech, Strength at 5/5 X4 ext, Normal tone, Sensation intact, Cranial nerves 3-12 NL, Reflexes 2+ Psych/Mental Status: Mental status NL, Mood NL laboratory and microbiology Laboratory Tests 10/09/25 06:26 Test 10/09/25 06:26 Range/Units Serum Glucose 126 H 74-106 mg/dL Labs and/or images reviewed: Labs reviewed by me, Image(s) reviewed by me Problem List/Assessment/Plan Problem List/Assessment/Plan DVT Acute hypoxic respiratory failure on supplemental oxygen Ruled out PAD Ruled out PE Admit to med surge telemetry No compressions in the leg Heparin drip Negative CT pulmonary angiography Supplemental O2, wean as tolerated Antiemetics Pain management Heparin started in ED, heparin drip Hemoglobin A1c ISS and Accu-Cheks Arterial duplex ordered NPO IV fluids Meloxicam PT eval Obesity Counseled on the importance of weight loss, exercise and dietary regimen Dyslipidemia Continue home medications Essential hypertension Continue home medications Target in-hospital blood pressure below 140/90 Type 2 diabetes mellitus Target in-hospital blood glucose between 140-180 Follow blood glucose levels History of bilateral knee replacement History of hip replacement Outpatient follow up with PCP on discharge History of partial thyroidectomy Outpatient follow up with PCP on discharge 10/09, Patient seen and examined at the bedside. Patient is feeling better since yesterday, still complained of mild leg pain. Physical therapy evaluation consulted Goals of care discussed full code Case discussed with Dr. Whipple Plan discussed with: Patient, Other (RN) Date of Service: Oct 09, 2025 Billing Provider: STEF LI MD Common Visit Codes: [id number] INP/OBS CARE(HIGH) ALISHA DOWNS [facility] Oct 09, 2025 13:49
[2025-10-09] MEDS: GABAPENTIN 300 MG CAP PO SCH (21:02)
[2025-10-10] VITALS (8 sets, daily range): BP systolic 123–147; BP diastolic 79–95; PULSE 52–82; RESP 16–18; TEMP 97.7–100.7; O2SAT 92–95
[2025-10-10 06:15] LABS: Hematocrit 37.1 % (41.0-53.0); Hemoglobin 12.3 g/dL (13.5-17.5); Mean Corpuscular Hemoglobin 27.7 pg (28.0-32.0); Mean Corpuscular Volume 84.0 fL (80.0-100.0); Nucleated Red Blood Cells % 0.1 %
[2025-10-10 06:30] LABS: INR 1.06 (0.9-1.15); Partial Thromboplastin Time 50.5 SEC (24.5-34.5); Prothrombin Time 11.2 sec (9.3-11.8)
[2025-10-10 06:34] LABS: Alanine Aminotransferase 14 U/L (7-40); Albumin 3.8 g/dL (3.2-4.8); Alkaline Phosphatase 74 U/L (46-116); Anion Gap 9 (5-15); BUN/Creatinine Ratio 16.5 (10.0-20.0); Bilirubin, Total 0.4 mg/dL (0.2-1.0); Blood Urea Nitrogen 17 mg/dL (9-23); Calcium 8.9 mg/dL (8.7-10.4); Carbon Dioxide 29 mmol/L (20-31); Chloride 100 mmol/L (98-107); Potassium 3.8 mmol/L (3.5-5.1); Sodium 138 mmol/L (136-145); Total Protein 7.6 g/dL (5.7-8.2)
[2025-10-10 06:41] LABS: Glucose 117 mg/dL (74-106)
--- NOTE | 2025-10-10 08:34 | CONS ---
Pharmacy Clinical Information: HEPARIN DRIP, DVT PROTOCOL @04:52 APTT 50.5 - NO BOLUS / NO CHANGE 3 CONSECUTIVE APTT THERAPEUTIC => APTT EVERY 24 HRS NEXT APTT DRAW SCHEDULED @0500 PER RX PROTOCOL CONFIRMED AND READ BACK WITH DILMA CUENCA,CO PHY RESIDENT Oct 10, 2025 08:34
--- NOTE | 2025-10-10 16:08 | DVHPNRES ---
Progress Note Date Seen: Oct 10, 2025 Resident Creating Document: SOCORRO ALMODOVAR Medical Necessity Reason Pt with a Central, PICC or Fol: No Subjective Review of Systems Patient seen at bedside. Complains of abscess draining pus at the site of DVT. Started on ceftriaxone. Surgery consult provided. CT with contrast right lower limb ordered. Hany Bach is a 64-year-old male with past medical history of DVT in 1999 and in 2014 now on Xarelto, diabetes mellitus, hypertension, dyslipidemia, depression presented with complaints of pain and swelling in the right lower limb since Friday. He had a swelling in the right groin initially. Patient says that he put a compression stocking in and when he removed 2 days later he noticed the redness and swelling in the calf. He had an episode of epistaxis and bleeding from the foot in the past week so he had stopped the Xarelto PMHx: Xarelto, diabetes mellitus, hypertension, dyslipidemia, depression PSHx: Thyroidectomy, knee and hip replacement Family history: cancer in father Social history: denies smoking alcohol or drug use Allergic history: minocycline General: patient denies fever, fatigue, weaknes, sweating, any recent changes in appetite and weight HEENT: No headaches, visiual changes, hearing loss, tinnitus, nasal congestion and discharge, and sore throat. Cardiovascular: Denies chest pain, palpitations, dyspnea on exertion, orthopnea, or claudication. Respiratory: No cough, and wheezing. Gastrointestinal: Denies nausea, vomiting, dysphagia, odynophagia, heartburn, abdominal pain, flatulence, bloating, diarrhea, constipation, change in stool, or blood in stool. Genitourinary: No dysuria, hematuria, discharge, frequency, urgency, nocturia, incontinence, and urinary retention. Endocrine: No heat or cold intolerance, polydipsia, polyuria, and polyphagia. Neurological: No dizziness, extremity weakness and numbness, tremors, gait disturbance, seizures, and memory impairment. Psychiatric: Denies depression, anxiety,or insomnia. Musculoskeletal: complains of pain and swelling in the right leg Skin: No rashes, itching, skin lesion, changes in hair, nail, skin texture and breast. Hematologic/Lymphatic: Denies easy bruising, bleeding tendencies, or lymph node enlargement. Objective vital signs Vital Sign Date Time Temp Pulse Resp B/P (MAP) Pulse Ox O2 Delivery O2 Flow Rate FiO2 11/24/25 13:00 98.3 71 16 123/81 (94) 93 98.3 10/10/25 08:00 Room Air* 0 21 Total Intake and Output 10/09/25 10/09/25 10/10/25 15:00 23:00 07:00 Intake Total 800 ml 2640 ml Output Total 1400 ml Balance 800 ml 1240 ml medications Current Medications Medications Dose Ordered Sig/Gretta Route Start Time Stop Time Status Last Admin Dose Admin Diagnostic Test (Pha) 1 strip Q6HR 10/06/25 18:00 10/10/25 11:47 1 STRIP Insulin Human Regular Q6HR SC 10/06/25 18:00 10/10/25 12:10 3 UNITS Dextrose 50 ml UD PRN IV 10/06/25 13:45 Acetaminophen/ Hydrocodone Bitart 1 tab Q4HP PRN PO 10/06/25 13:45 10/10/25 09:49 1 TAB Ondansetron HCl 4 mg Q4HP PRN IV 10/06/25 13:45 10/06/25 18:29 4 MG Acetaminophen 650 mg Q6HP PRN PO 10/06/25 13:45 Morphine Sulfate 2 mg Q4HPRN PRN IV 10/06/25 13:45 10/08/25 20:05 2 MG Hydrochlorothiazide 25 mg DAILY PO 10/07/25 10:00 10/10/25 09:48 25 MG Patient Own Medication 1 tab DAILY PO 10/07/25 10:00 UNV Patient Own Medication 1 tab DAILY PO 10/07/25 10:00 UNV Patient Own Medication 1 tab DAILY PO 10/07/25 10:00 UNV Atorvastatin Calcium 10 mg HS PO 10/06/25 22:00 10/09/25 21:02 10 MG Amlodipine Besylate 10 mg DAILY PO 10/07/25 10:00 10/10/25 09:48 10 MG Lisinopril 40 mg DAILY PO 10/07/25 10:00 10/10/25 09:49 40 MG Sertraline HCl 100 mg DAILY PO 10/07/25 10:00 10/10/25 09:49 100 MG Tamsulosin HCl 0.4 mg BIDPC PO 10/07/25 09:00 10/10/25 09:48 0.4 MG Levothyroxine Sodium 125 mcg QAM@0600 PO 10/07/25 06:00 10/10/25 05:40 125 MCG Temazepam 15 mg HSPRN PRN PO 10/07/25 22:15 10/09/25 21:03 15 MG Heparin Sodium/ Dextrose 250 ml @ 20 mls/hr [id number] IV 10/07/25 23:00 10/10/25 11:26 20 MLS/HR Pantoprazole Sodium 40 mg DAILY@0600 PO 10/09/25 06:00 10/10/25 05:40 40 MG Gabapentin 300 mg BID PO 10/09/25 22:00 10/10/25 09:48 300 MG Ceftriaxone Sodium 50 ml @ 100 mls/hr DAILY@09 IV 10/10/25 15:15 Examination General Appearance: Alert, Oriented X3, Cooperative, No acute distress HEENT: Atraumatic, PERRLA, EOMI, Mucous membrane moist/pink Respiratory: Clear to auscultation, Normal air movement Cardiovascular: Regular rate, Normal S1, Normal S2, No murmurs, no chest wall tenderness Abdominal: Normal bowel sounds, Soft, No tenderness, No hepatospenomegaly, No masses Extremities: tenderness in the calf Skin: No rashes, No breakdown, No significant lesion Neuro: Normal gait, Normal speech, Strength at 5/5 X4 ext, Normal tone, Sensation intact, Cranial nerves 3-12 NL, Reflexes 2+ Psych/Mental Status: Mental status NL, Mood NL laboratory and microbiology Laboratory Tests 10/10/25 04:52 Test 10/10/25 04:52 Range/Units Serum Glucose 117 H 74-106 mg/dL Problem List/Assessment/Plan Problem List/Assessment/Plan Assessment and plan DVT Acute hypoxic respiratory failure on supplemental oxygen Ruled out PAD Ruled out PE Admit to med surge telemetry No compressions in the leg Heparin drip Negative CT pulmonary angiography Supplemental O2, wean as tolerated Antiemetics Pain management Heparin started in ED, heparin drip Hemoglobin A1c ISS and Accu-Cheks Arterial duplex ordered NPO IV fluids Meloxicam PT eval Obesity Counseled on the importance of weight loss, exercise and dietary regimen Dyslipidemia Continue home medications Essential hypertension Continue home medications Target in-hospital blood pressure below 140/90 Type 2 diabetes mellitus Target in-hospital blood glucose between 140-180 Follow blood glucose levels History of bilateral knee replacement History of hip replacement Outpatient follow up with PCP on discharge History of partial thyroidectomy Outpatient follow up with PCP on discharge Goals of care discussed full code Case discussed with Dr. Whipple Plan discussed with: Patient My Orders My Orders Orders - SOCORRO ALMODOVAR Procedure Category Date Status Time Consult Care CONS 10/10/25 Transmitted Coordinator Rt Lower Extremity W CT 10/10/25 Logged CON 14:41 * Surgical Consult CONS 10/10/25 Transmitted Ceftriaxone 1gm/50ml PHA 10/10/25 In Process (Rocephin) 15:15 Date of Service: Oct 10, 2025 Billing Provider: STEF LI MD Common Visit Codes: [id number] INP/OBS CARE(HIGH) SOCORRO ALMODOVAR Oct 10, 2025 16:08
[2025-10-10] MEDS: IOHEXOL 300 MG/ML 100ML BOTTLE IJ ONE (16:39)
[2025-10-10] MEDS: MORPHINE SULFATE 4 MG/ML SYR/VIAL IV PRN (18:00)
[2025-10-10] MEDS ORDERED: PIPERACILLIN-TAZO 4.5GM 100 ML IV SCH (18:00)
[2025-10-10] MEDS ORDERED: VANCOMYCIN PER PHARMACY 0 MG IV SCH (18:00)
--- NOTE | 2025-10-10 18:07 | DVHINCON2 ---
Consultation - Surgical Date Seen: Oct 10, 2025 Referring Physician Reason for Consultation Necrotizing fasciitis History of Present Illness History of Present Illness Mr. Bach is a 64-year-old male who has been admitted to the hospital due to right SFA and popliteal vein DVT. Ever since arrival patient has been having swelling and erythema of the right lower extremity. Has a associated tenderness in the area. States that he has dealt with peripheral vascular disease in the past. I was consulted for the possibility of necrotizing fasciitis. Past Medical/Surgical History Past Medical/Surgical History PMHx: Xarelto, diabetes mellitus, hypertension, dyslipidemia, depression PSHx: Thyroidectomy, knee and hip replacement Family history: cancer in father Social history: denies smoking alcohol or drug use Allergic history: minocycline Allergies and medications Allergies: Coded Allergies: Minocycline (Verified Allergy, Unknown, 09/18/25) Home Meds Reported Medications Omeprazole (Gnp Omeprazole) 20 Mg Tab, 1 TAB PO DAILY, #90 TAB 1 Refill 10/06/25 Levothyroxine Sodium (Levothyroxine Sodium) 125 Mcg Tab, 1 TAB PO DAILY, #30 TAB 5 Refills 10/06/25 Rosuvastatin Calcium (Rosuvastatin Calcium) 10 Mg Tab, 1 TAB PO 10/06/25 Gabapentin (Gabapentin) 300 Mg Cap, CAP PO 10/06/25 Lisinopril (Lisinopril) 40 Mg Tab, 1 TAB PO DAILY 10/06/25 Hctz (Hydrochlorothiazide) 25 Mg Tab, 1 TAB PO DAILY 10/06/25 Tamsulosin Hcl (Tamsulosin Hcl) 0.4 Mg Cap, 1 CAP PO BID 10/06/25 Sertraline Hcl (Sertraline Hcl) 100 Mg Tab, 1 TAB PO DAILY 10/06/25 Amlodipine Besylate (Amlodipine Besylate) 10 Mg Tab, 1 TAB PO DAILY 10/06/25 Review of systems Review of Systems: Deferred Examination Vital signs Vital Signs Date Time Temp Pulse Resp B/P (MAP) Pulse Ox O2 Delivery O2 Flow Rate FiO2 10/10/25 13:00 98.3 71 16 123/81 (95) 93 98.3 10/10/25 08:00 Room Air* 0 21 Medications Current Medications Medications (Trade) Dose Ordered Sig/Gertta Route PRN Reason Start Time Stop Time Status Last Admin Gabapentin (Neurontin Capsule) 300 mg BID PO 10/09/25 22:00 10/10/25 09:48 Ceftriaxone Sodium 50 ml @ 100 mls/hr DAILY@09 IV 10/10/25 15:15 Morphine Sulfate 2 mg Q4HPRN PRN IV SEVERE PAIN (7-10 PAIN SCALE) 10/10/25 17:45 Laboratory Labs Test 10/10/25 16:56 10/10/25 04:52 10/06/25 14:24 10/06/25 12:38 Range/Units POC Glucose 121 H 70-106 mg/dl White Blood Count 7.5 4.4-10.8 10^3/uL Red Blood Count 4.42 L 4.5-5.90 10^6/uL Hemoglobin 12.3 L 13.5-17.5 g/dL Hematocrit 37.1 L 41.0-53.0 % Mean Corpuscular Volume 84.0 80.0-100.0 fL Mean Corpuscular Hemoglobin 27.7 L 28.0-32.0 pg Mean Corpuscular Hemoglobin Concent 33.0 32.0-36.0 g/dL Red Cell Distribution Width 15.3 H 11.8-14.3 % Platelet Count 207 140-450 10^3/uL Mean Platelet Volume 7.2 6.9-10.8 fL Neutrophils (%) (Auto) 73.7 37.0-80.0 % Lymphocytes (%) (Auto) 15.1 10.0-50.0 % Monocytes (%) (Auto) 8.4 0.0-12.0 % Eosinophils (%) (Auto) 2.4 0.0-7.0 % Basophils (%) (Auto) 0.4 0.0-2.0 % Neutrophils # (Auto) 5.5 1.6-8.6 10 ^3/uL Lymphocytes # (Auto) 1.1 0.4-5.4 10 ^3/uL Monocytes # (Auto) 0.6 0-1.3 10 ^3/uL Eosinophils # (Auto) 0.2 0-0.8 10 ^3/uL Basophils # (Auto) 0 0-0.2 10 ^3/uL Nucleated Red Blood Cells 0.1 % Prothrombin Time 11.2 9.3-11.8 sec Prothrombin Time INR 1.06 0.9-1.15 Activated Partial Thromboplast Time 50.5 H 24.5-34.5 SEC Sodium Level 138 136-145 mmol/L Potassium Level 3.8 3.5-5.1 mmol/L Chloride Level 100 98-107 mmol/L Carbon Dioxide Level 29 20-31 mmol/L Anion Gap 9 5-15 Blood Urea Nitrogen 17 9-23 mg/dL Creatinine 1.03 0.700-1.30 mg/dL Glomerular Filtration Rate Calc 81 >90 mL/min BUN/Creatinine Ratio 16.5 10.0-20.0 Serum Glucose 117 H 74-106 mg/dL Calcium Level 8.9 8.7-10.4 mg/dL Total Bilirubin 0.4 0.2-1.0 mg/dL Aspartate Amino Transferase (AST) 15 13-40 U/L Alanine Aminotransferase (ALT) 14 7-40 U/L Alkaline Phosphatase 74 46-116 U/L Total Protein 7.6 5.7-8.2 g/dL Albumin 3.8 3.2-4.8 g/dL Urine Color Light-yellow Yellow Urine Clarity Clear Clear Urine pH 5.5 5.0-9.0 Urine Specific [place] 1.024 1.001-1.035 Urine Protein Negative Negative Urine Ketones Negative Negative Urine Blood 1+ H Negative /uL Urine Nitrite Negative Negative Urine Bilirubin Negative Negative Urine Urobilinogen Normal Negative mg/dL Urine Leukocyte Esterase Negative Negative /uL Urine RBC 5 0 - 3 /hpf Urine Microscopic WBC 1 0-3 /HPF Urine Squamous Epithelial Cells None seen <5 /hpf Urine Bacteria None seen None Seen /hpf Urine Glucose 4+ H Normal mg/dL Urine Opiates Screen Neg NEGATIVE Urine Fentanyl Screen Neg NEGATIVE Urine Barbiturates Screen Neg NEGATIVE Urine Phencyclidine Screen Neg NEGATIVE Urine Amphetamines Screen Neg NEGATIVE Urine Benzodiazepines Screen Neg NEGATIVE Urine Cocaine Screen Neg NEGATIVE Urine Cannabinoids Screen Pos NEGATIVE Hemoglobin A1c 6.5 H <5.7 % A1C Troponin I High Sensitivity < 3 L </=54 ng/L B-Type Natriuretic Peptide 47.07 0-100 pg/mL Examination: GENERAL:Normal (AAO x3), SKIN:Abnormal (Right lower extremity edema, lower leg with demarcated and raised area of erythema (circumferential) tender, medial calf with skin break actively draining pus) Problem List/Assessment/Plan Problems: (1) Infection of skin Assessment and Plan Mr. Bach is a 64-year-old male who has a right superficial femoral vein and popliteal vein DVT. I was consulted for the possibility of necrotizing fasciitis in the right lower extremity. Right lower leg has clearly demarcated area of erythema circumferentially with raised borders and tenderness, these findings are consistent with erysipelas. CT of the right lower extremity was reviewed shows a small area of fluid collection right were the skin broke open earlier today and pus started emanating. I open the draining area more with digital pressure, and sent cultures. Patient needs to be on antibiotics, started him on Zosyn and vancomycin. There is no physical or CT evidence of necrotizing fasciitis. Plan discussed with Plan discussed with: Patient Visit Coding Surgery Date of Service if different f: Oct 10, 2025 Billing Provider: ALEKSANDAR FERRARO MD Surgery Visit Codes: 50331 - INP CONSULT <110 MIN ALEKSANDAR FERRARO MD Oct 10, 2025 18:07
[2025-10-10] MEDS: PIPERACILLIN-TAZO 4.5GM 100 ML IV SCH (18:44)
[2025-10-10] MEDS: VANCOMYCIN 1GM/250ML KIT 250 ML IV SCH (20:13)
--- NOTE | 2025-10-10 20:46 | DVH ---
EXAM: CT RT LOWER EXTREMITY W CON HISTORY: to look for signs of infection COMPARISON: None TECHNIQUE: Noncontrast axial CT images of the right lower extremity at and below the level of the right knee were performed. Sagittal and coronal reformatted images were obtained. This CT exam was performed using one or more of the following dose reduction techniques: Automated exposure control, adjustment of the mA and/or kv according to patient size, or the use of iterative reconstruction techniques. Radiation Dose Information: CT Dose: CTDI volume is 10.13 mGy. Dose-length product is 703.59 mGy*cm FINDINGS: Normal mineralization and alignment. There is mild 1st MTP joint osteoarthritis. There is degenerative change of the tarsometatarsal joints and dorsum of the midfoot. Dorsal and plantar calcaneal enthesophytes. No focal osteopenia or cortical destruction to suggest osteomyelitis. There is a medial compartment knee arthroplasty. Lateral compartment osteoarthritis with subchondral cystic change and sclerosis as well as osteophyte formation. There is a small right knee joint effusion. Tricompartment osteophyte formation. There is subcutaneous edema in the right lower extremity. No well-formed fluid collection or soft tissue gas. IMPRESSION: 1. No acute fracture or evidence of osteomyelitis. 2. Diffuse subcutaneous edema in the visualized right lower extremity without well-formed fluid collection or soft tissue gas. This could reflect cellulitis in the appropriate clinical setting. 3. Medial compartment knee arthroplasty. Hardware components are intact. 4. Tricompartment osteoarthritis with tricompartment osteophyte formation and lateral compartment mild joint space narrowing, subchondral cyst formation and sclerosis. 5. Small right knee joint effusion. 6. Mild 1st MTP joint osteoarthritis and degenerative change of the tarsometatarsal joints and dorsum of the midfoot.
[2025-10-11] VITALS (8 sets, daily range): BP systolic 126–139; BP diastolic 81–106; PULSE 67–70; RESP 17–20; TEMP 97.5–98.1; O2SAT 92–95
[2025-10-11 05:45] LABS: Hematocrit 39.7 % (41.0-53.0); Hemoglobin 13.3 g/dL (13.5-17.5); Mean Corpuscular Hemoglobin 27.8 pg (28.0-32.0); Mean Corpuscular Volume 83.2 fL (80.0-100.0); Nucleated Red Blood Cells % 0.3 %
[2025-10-11 05:56] LABS: Alanine Aminotransferase 16 U/L (7-40); Albumin 3.7 g/dL (3.2-4.8); Alkaline Phosphatase 76 U/L (46-116); Anion Gap 11 (5-15); BUN/Creatinine Ratio 17.3 (10.0-20.0); Blood Urea Nitrogen 17 mg/dL (9-23); Calcium 8.8 mg/dL (8.7-10.4); Carbon Dioxide 28 mmol/L (20-31); Chloride 102 mmol/L (98-107); Glucose 89 mg/dL (74-106); Potassium 4.4 mmol/L (3.5-5.1); Sodium 141 mmol/L (136-145); Total Protein 7.4 g/dL (5.7-8.2)
[2025-10-11 05:57] LABS: Bilirubin, Total 0.4 mg/dL (0.2-1.0)
[2025-10-11 06:01] LABS: INR 1.06 (0.9-1.15); Partial Thromboplastin Time 43.1 SEC (24.5-34.5); Prothrombin Time 11.2 sec (9.3-11.8)
[2025-10-11] MEDS: HEPARIN DRIP/D5W 100UNITS/ML 250 ML IV SCH ×2 (06:17→10:49)
[2025-10-11 12:00] LABS: INR 1.06 (0.9-1.15); Partial Thromboplastin Time 63.2 SEC (24.5-34.5); Prothrombin Time 11.2 sec (9.3-11.8)
[2025-10-11] MEDS: AMPICILLIN & SULBACTAM SODIUM 3 GM in SODIUM CHL 0.9% 100 ML IV SCH ×2 (12:01→18:06)
[2025-10-11] MEDS: GABAPENTIN 300 MG CAP PO SCH (14:13)
--- NOTE | 2025-10-11 15:02 | CONS ---
Pharmacy Clinical Information: HEPARIN DRIP, DVT PROTOCOL @11:17 APTT 63.2 - NO BOLUS / NO CHANGE NEXT APTT DRAW SCHEDULED @1730 PER RX PROTOCOL CONFIRMED AND READ BACK WITH QUINTEN VEGA PHARMACIST Oct 11, 2025 15:02
--- NOTE | 2025-10-11 15:24 | DVHPNRES ---
Progress Note Date Seen: Oct 11, 2025 Resident Creating Document: SOCORRO ALMODOVAR Medical Necessity Reason Pt with a Central, PICC or Fol: No Subjective Review of Systems Patient seen at bedside. Started to ambulate with help yesterday. PT ongoing. Surgery evaluated. Started vancomycin and Unasyn for erysipelas. Wound cultures for. Hany Bach is a 64-year-old male with past medical history of DVT in 1999 and in 2014 now on Xarelto, diabetes mellitus, hypertension, dyslipidemia, depression presented with complaints of pain and swelling in the right lower limb since Friday. He had a swelling in the right groin initially. Patient says that he put a compression stocking in and when he removed 2 days later he noticed the redness and swelling in the calf. He had an episode of epistaxis and bleeding from the foot in the past week so he had stopped the Xarelto PMHx: Xarelto, diabetes mellitus, hypertension, dyslipidemia, depression PSHx: Thyroidectomy, knee and hip replacement Family history: cancer in father Social history: denies smoking alcohol or drug use Allergic history: minocycline General: patient denies fever, fatigue, weaknes, sweating, any recent changes in appetite and weight HEENT: No headaches, visiual changes, hearing loss, tinnitus, nasal congestion and discharge, and sore throat. Cardiovascular: Denies chest pain, palpitations, dyspnea on exertion, orthopnea, or claudication. Respiratory: No cough, and wheezing. Gastrointestinal: Denies nausea, vomiting, dysphagia, odynophagia, heartburn, abdominal pain, flatulence, bloating, diarrhea, constipation, change in stool, or blood in stool. Genitourinary: No dysuria, hematuria, discharge, frequency, urgency, nocturia, incontinence, and urinary retention. Endocrine: No heat or cold intolerance, polydipsia, polyuria, and polyphagia. Neurological: No dizziness, extremity weakness and numbness, tremors, gait disturbance, seizures, and memory impairment. Psychiatric: Denies depression, anxiety,or insomnia. Musculoskeletal: complains of pain and swelling in the right leg Skin: No rashes, itching, skin lesion, changes in hair, nail, skin texture and breast. Hematologic/Lymphatic: Denies easy bruising, bleeding tendencies, or lymph node enlargement. Objective vital signs Vital Sign Date Time Temp Pulse Resp B/P (MAP) Pulse Ox O2 Delivery O2 Flow Rate FiO2 10/11/25 13:00 97.5 69 20 126/81 (96) 94 97.5 10/11/25 08:00 Room Air* 0 21 Total Intake and Output 10/10/25 10/10/25 10/11/25 15:00 23:00 07:00 Intake Total 850 ml 1100 ml Output Total 0 ml 800 ml Balance 850 ml 300 ml medications Current Medications Medications Dose Ordered Sig/Gretta Route Start Time Stop Time Status Last Admin Dose Admin Diagnostic Test (Pha) 1 strip Q6HR 10/06/25 18:00 10/11/25 11:59 1 STRIP Insulin Human Regular Q6HR SC 10/06/25 18:00 10/11/25 11:59 4 UNITS Dextrose 50 ml UD PRN IV 10/06/25 13:45 Acetaminophen/ Hydrocodone Bitart 1 tab Q4HP PRN PO 10/06/25 13:45 10/11/25 10:45 1 TAB Ondansetron HCl 4 mg Q4HP PRN IV 10/06/25 13:45 10/06/25 18:29 4 MG Acetaminophen 650 mg Q6HP PRN PO 10/06/25 13:45 Hydrochlorothiazide 25 mg DAILY PO 10/07/25 10:00 10/11/25 10:46 25 MG Patient Own Medication 1 tab DAILY PO 10/07/25 10:00 UNV Patient Own Medication 1 tab DAILY PO 10/07/25 10:00 UNV Patient Own Medication 1 tab DAILY PO 10/07/25 10:00 UNV Atorvastatin Calcium 10 mg HS PO 10/06/25 22:00 10/10/25 22:04 10 MG Amlodipine Besylate 10 mg DAILY PO 10/07/25 10:00 10/11/25 10:46 10 MG Lisinopril 40 mg DAILY PO 10/07/25 10:00 10/11/25 10:47 40 MG Tamsulosin HCl 0.4 mg BIDPC PO 10/07/25 09:00 10/11/25 08:27 0.4 MG Levothyroxine Sodium 125 mcg QAM@0600 PO 10/07/25 06:00 10/11/25 05:17 125 MCG Temazepam 15 mg HSPRN PRN PO 10/07/25 22:15 10/09/25 21:03 15 MG Pantoprazole Sodium 40 mg DAILY@0600 PO 10/09/25 06:00 10/11/25 05:17 40 MG Vancomycin HCl 0 ml @ 0 mls/hr PER PHARMACY IV 10/10/25 18:00 Vancomycin HCl 250 ml @ 250 mls/hr Q12H IV 10/10/25 20:00 10/11/25 08:26 250 MLS/HR Heparin Sodium/ Dextrose 250 ml @ 22 mls/hr [id number] IV 10/11/25 10:45 10/11/25 10:49 22 MLS/HR Gabapentin 300 mg TID PO 10/11/25 14:00 10/11/25 14:13 300 MG Hydromorphone HCl 0.25 mg Q4HPRN PRN IV 10/11/25 11:45 Ampicillin Sodium/ Sulbactam Sodium 3 gm/Sodium Chloride 100 ml @ 100 mls/hr Q6H IV 10/11/25 18:00 Duloxetine HCl 30 mg DAILY PO 10/12/25 10:00 Examination General Appearance: Alert, Oriented X3, Cooperative, No acute distress HEENT: Atraumatic, PERRLA, EOMI, Mucous membrane moist/pink Respiratory: Clear to auscultation, Normal air movement Cardiovascular: Regular rate, Normal S1, Normal S2, No murmurs, no chest wall tenderness Abdominal: Normal bowel sounds, Soft, No tenderness, No hepatospenomegaly, No masses Extremities: tenderness in the calf Skin: No rashes, No breakdown, No significant lesion Neuro: Normal gait, Normal speech, Strength at 5/5 X4 ext, Normal tone, Sensation intact, Cranial nerves 3-12 NL, Reflexes 2+ Psych/Mental Status: Mental status NL, Mood NL laboratory and microbiology Laboratory Tests 10/11/25 04:44 Test 10/11/25 04:44 Range/Units Serum Glucose 89 74-106 mg/dL Microbiology Date/Time Source Procedure Growth Status 10/10/25 17:50 Leg Right Anaerobic Culture - Preliminary Resulted Problem List/Assessment/Plan Problem List/Assessment/Plan Assessment and plan Eryspelasis DVT Acute hypoxic respiratory failure on supplemental oxygen Ruled out PAD Ruled out PE Vancomycin and Unasyn Wound culture Admit to med surge telemetry No compressions in the leg Heparin drip Negative CT pulmonary angiography Supplemental O2, wean as tolerated Antiemetics Pain management Heparin started in ED, heparin drip Hemoglobin A1c ISS and Accu-Cheks Arterial duplex ordered NPO IV fluids Meloxicam PT eval Obesity Counseled on the importance of weight loss, exercise and dietary regimen Dyslipidemia Continue home medications Essential hypertension Continue home medications Target in-hospital blood pressure below 140/90 Type 2 diabetes mellitus Target in-hospital blood glucose between 140-180 Follow blood glucose levels History of bilateral knee replacement History of hip replacement Outpatient follow up with PCP on discharge History of partial thyroidectomy Outpatient follow up with PCP on discharge Goals of care discussed full code Case discussed with Dr. Whipple Plan discussed with: Patient My Orders My Orders Orders - SOCORRO ALMODOVAR RESIDENT Procedure Category Date Status Time Discontinue Tele ISABELLA 10/11/25 In Process 07:49 Transfer Orders XFER 10/11/25 Transmitted 07:49 * Wound Consult CONS 10/11/25 Transmitted Duloxetine Hcl PHA 10/12/25 In Process Capsule (Cymbalta 10:00 Complete Blood Count LAB 10/12/25 Verified 04:00 Basic Metabolic Panel LAB 10/12/25 Verified 04:00 Dietary Evaluation Review Comments: Nutrition Recommendation: 1) CCHO 60gm + cardiac diet 2) Monitor PO intake, lab values, weight trend, and I/O Expected Outcomes/Goals: FU 3-5 days Intake to meet >75% estimated needs Lab values to improve Date of Service: Oct 11, 2025 Billing Provider: STEF LI MD Common Visit Codes: [id number] INP/OBS CARE(HIGH) SOCORRO ALMODOVAR RESIDENT Oct 11, 2025 15:24 STEF LI MD Oct 17, 2025 09:56
--- NOTE | 2025-10-11 17:05 | DVHPN2 ---
Progress Note - Surgical Date Seen: Oct 11, 2025 Post op day Post op day: 0 Subjective Patient reports: No new complaints (Leg still feels the same, he is afebrile with vital stable.) Review of Systems: Deferred Objective Vital signs Vital Sign Date Time Temp Pulse Resp B/P (MAP) Pulse Ox O2 Delivery O2 Flow Rate FiO2 10/11/25 13:00 97.5 69 20 126/81 (96) 94 97.5 10/11/25 08:00 Room Air* 0 21 Total Intake and Output 10/10/25 10/10/25 10/11/25 15:00 23:00 07:00 Intake Total 850 ml 1100 ml Output Total 0 ml 800 ml Balance 850 ml 300 ml Medications Current Medications Medications Dose Ordered Sig/Gretta Route Start Time Stop Time Status Last Admin Dose Admin Diagnostic Test (Pha) 1 strip Q6HR 10/06/25 18:00 10/11/25 11:59 1 STRIP Insulin Human Regular Q6HR SC 10/06/25 18:00 10/11/25 11:59 4 UNITS Dextrose 50 ml UD PRN IV 10/06/25 13:45 Acetaminophen/ Hydrocodone Bitart 1 tab Q4HP PRN PO 10/06/25 13:45 10/11/25 10:45 1 TAB Ondansetron HCl 4 mg Q4HP PRN IV 10/06/25 13:45 10/06/25 18:29 4 MG Acetaminophen 650 mg Q6HP PRN PO 10/06/25 13:45 Hydrochlorothiazide 25 mg DAILY PO 10/07/25 10:00 10/11/25 10:46 25 MG Patient Own Medication 1 tab DAILY PO 10/07/25 10:00 UNV Patient Own Medication 1 tab DAILY PO 10/07/25 10:00 UNV Patient Own Medication 1 tab DAILY PO 10/07/25 10:00 UNV Atorvastatin Calcium 10 mg HS PO 10/06/25 22:00 10/10/25 22:04 10 MG Amlodipine Besylate 10 mg DAILY PO 10/07/25 10:00 10/11/25 10:46 10 MG Lisinopril 40 mg DAILY PO 10/07/25 10:00 10/11/25 10:47 40 MG Tamsulosin HCl 0.4 mg BIDPC PO 10/07/25 09:00 10/11/25 08:27 0.4 MG Levothyroxine Sodium 125 mcg QAM@0600 PO 10/07/25 06:00 10/11/25 05:17 125 MCG Temazepam 15 mg HSPRN PRN PO 10/07/25 22:15 10/09/25 21:03 15 MG Pantoprazole Sodium 40 mg DAILY@0600 PO 10/09/25 06:00 10/11/25 05:17 40 MG Vancomycin HCl 0 ml @ 0 mls/hr PER PHARMACY IV 10/10/25 18:00 Vancomycin HCl 250 ml @ 250 mls/hr Q12H IV 10/10/25 20:00 10/11/25 08:26 250 MLS/HR Heparin Sodium/ Dextrose 250 ml @ 22 mls/hr [id number] IV 10/11/25 10:45 10/11/25 10:49 22 MLS/HR Gabapentin 300 mg TID PO 10/11/25 14:00 10/11/25 14:13 300 MG Hydromorphone HCl 0.25 mg Q4HPRN PRN IV 10/11/25 11:45 Ampicillin Sodium/ Sulbactam Sodium 3 gm/Sodium Chloride 100 ml @ 100 mls/hr Q6H IV 10/11/25 18:00 Duloxetine HCl 30 mg DAILY PO 10/12/25 10:00 Laboratory Laboratory Tests 10/11/25 04:44 Test 10/11/25 04:44 Range/Units Serum Glucose 89 74-106 mg/dL Microbiology Date/Time Source Procedure Growth Status 10/10/25 17:50 Leg Right Anaerobic Culture - Preliminary Resulted Examination: GENERAL:Normal (AAO x3), LUNGS:Normal (Nonlabored breathing with symmetric expansion), SKIN:Abnormal (Right lower leg with circumferential erythematous patch with demarcated borders extending from immediately above of the ankle to immediately below the knee, tender, no crepitus, medial aspect of calf with skin opening.) Labs and/or images reviewed: Labs reviewed by me (No leukocytosis, cultures pending) Problem List/Assessment/Plan Problems: (1) Infection of skin Assessment and Plan Mr. Bach is a 64-year-old male who has a right superficial femoral vein and popliteal vein DVT. I was consulted for the possibility of necrotizing fasciitis in the right lower extremity. Right lower leg has clearly demarcated area of erythema circumferentially with raised borders and tenderness, these findings are consistent with erysipelas. CT of the right lower extremity was reviewed shows a small area of fluid collection right were the skin broke open earlier today and pus started emanating. I open the draining area more with digital pressure, and sent cultures. Patient needs to be on antibiotics, started him on Zosyn and vancomycin. There is no physical or CT evidence of necrotizing fasciitis. Interval: CT was read by radiology as no fluid collections. Patient needs to continue on antibiotics and leg elevation for superficial skin infection. 1. Continue with IV antibiotics until cultures result 2. Leg elevation 3. No further surgical management indicated, I will sign off, please call with any questions or concerns My Orders My Orders Orders - ALEKSANDAR FERRARO MD Procedure Category Date Status Time Vancomycin Per PHA 10/10/25 In Process Pharmacy 18:00 Anaerobic Culture BRENDEN 10/10/25 In Process 17:55 Vancomycin 1gm/250ml PHA 10/10/25 In Process Kit 20:00 Vancomycin,Trough LAB 10/12/25 Verified 07:00 Vancomycin Per ISABELLA 10/12/25 In Process Pharmacy Protoc 08:00 Creatinine LAB 10/12/25 Verified 07:00 Plan discussed with Plan discussed with: Patient Visit Coding Surgery Date of Service if different f: Oct 11, 2025 Billing Provider: ALEKSANDAR FERRARO MD Surgery Visit Codes: [id number] INP/OBS CARE(HIGH) ALEKSANDAR FERRARO MD Oct 11, 2025 17:05
[2025-10-11] MEDS: HYDROmorphone HCL 2 MG/ML VL/or syr IV PRN (17:14)
[2025-10-11 18:21] LABS: INR 1.06 (0.9-1.15); Partial Thromboplastin Time 62.6 SEC (24.5-34.5); Prothrombin Time 11.2 sec (9.3-11.8)
[2025-10-12] VITALS (8 sets, daily range): BP systolic 137–154; BP diastolic 88–100; PULSE 69–80; RESP 17–20; TEMP 97.1–98.5; O2SAT 93–99
[2025-10-12 00:18] LABS: INR 1.05 (0.9-1.15); Partial Thromboplastin Time 58.9 SEC (24.5-34.5); Prothrombin Time 11.1 sec (9.3-11.8)
[2025-10-12 07:48] LABS: Hematocrit 39.0 % (41.0-53.0); Hemoglobin 13.0 g/dL (13.5-17.5); Mean Corpuscular Hemoglobin 27.5 pg (28.0-32.0); Mean Corpuscular Volume 82.2 fL (80.0-100.0); Nucleated Red Blood Cells % 0.4 %
[2025-10-12 08:32] LABS: Anion Gap 12 (5-15); Calcium 8.9 mg/dL (8.7-10.4); Carbon Dioxide 21 mmol/L (20-31); Chloride 105 mmol/L (98-107); Potassium 4.3 mmol/L (3.5-5.1); Sodium 138 mmol/L (136-145)
[2025-10-12 08:38] LABS: BUN/Creatinine Ratio 13.3 (10.0-20.0); Blood Urea Nitrogen 13 mg/dL (9-23)
[2025-10-12 08:39] LABS: Glucose 121 mg/dL (74-106)
--- NOTE | 2025-10-12 09:33 | CONS ---
Pharmacy Clinical Information: ON 10/12 @0701, PLT 115, DROPPED FROM 201 CALCULATED 4T SCORE = 5: INTERMEDIATE POSSIBILITY OF HIT CONTACTED DR. MONTESINOS ABOUT THE POTENTIAL HIT. WAS TOLD TO HOLD THE HEPARIN, AND HE WILL TAKE IT FROM THERE FOR ANOTHER ANTICOAG AGENT ORDERED STAT PTPTT FOR CONFIRMATION [facility] RESIDENT Oct 12, 2025 09:33
[2025-10-12] MEDS ORDERED: ARGATROBAN 250 MG in SODIUM CHL 0.9% 247.5 ML IV SCH ×2 (10:28→11:00)
[2025-10-12 10:40] LABS: INR 1.08 (0.9-1.15); Partial Thromboplastin Time 64.0 SEC (24.5-34.5); Prothrombin Time 11.4 sec (9.3-11.8)
[2025-10-12 10:54] LABS: Hematocrit 36.3 % (41.0-53.0); Hemoglobin 11.9 g/dL (13.5-17.5); Mean Corpuscular Hemoglobin 27.5 pg (28.0-32.0); Mean Corpuscular Volume 83.7 fL (80.0-100.0); Nucleated Red Blood Cells % 0.0 %
[2025-10-12 13:44] LABS: Hematocrit 39.5 % (41.0-53.0); Hemoglobin 13.1 g/dL (13.5-17.5); Mean Corpuscular Hemoglobin 27.8 pg (28.0-32.0); Mean Corpuscular Volume 83.6 fL (80.0-100.0); Nucleated Red Blood Cells % 0.1 %
--- NOTE | 2025-10-12 17:10 | DVHPNRES ---
Progress Note Date Seen: Oct 12, 2025 Resident Creating Document: SOCORRO ALMODOVAR Medical Necessity Reason Pt with a Central, PICC or Fol: No Subjective Review of Systems Patient seen at bedside. PT ongoing. Wound cultures pending. Stopped heparin, started on Xarelto. Hany Bach is a 64-year-old male with past medical history of DVT in 1999 and in 2014 now on Xarelto, diabetes mellitus, hypertension, dyslipidemia, depression presented with complaints of pain and swelling in the right lower limb since Friday. He had a swelling in the right groin initially. Patient says that he put a compression stocking in and when he removed 2 days later he noticed the redness and swelling in the calf. He had an episode of epistaxis and bleeding from the foot in the past week so he had stopped the Xarelto PMHx: Xarelto, diabetes mellitus, hypertension, dyslipidemia, depression PSHx: Thyroidectomy, knee and hip replacement Family history: cancer in father Social history: denies smoking alcohol or drug use Allergic history: minocycline General: patient denies fever, fatigue, weaknes, sweating, any recent changes in appetite and weight HEENT: No headaches, visiual changes, hearing loss, tinnitus, nasal congestion and discharge, and sore throat. Cardiovascular: Denies chest pain, palpitations, dyspnea on exertion, orthopnea, or claudication. Respiratory: No cough, and wheezing. Gastrointestinal: Denies nausea, vomiting, dysphagia, odynophagia, heartburn, abdominal pain, flatulence, bloating, diarrhea, constipation, change in stool, or blood in stool. Genitourinary: No dysuria, hematuria, discharge, frequency, urgency, nocturia, incontinence, and urinary retention. Endocrine: No heat or cold intolerance, polydipsia, polyuria, and polyphagia. Neurological: No dizziness, extremity weakness and numbness, tremors, gait disturbance, seizures, and memory impairment. Psychiatric: Denies depression, anxiety,or insomnia. Musculoskeletal: complains of pain and swelling in the right leg Skin: No rashes, itching, skin lesion, changes in hair, nail, skin texture and breast. Hematologic/Lymphatic: Denies easy bruising, bleeding tendencies, or lymph node enlargement. Objective vital signs Vital Sign Date Time Temp Pulse Resp B/P (MAP) Pulse Ox O2 Delivery O2 Flow Rate FiO2 10/12/25 16:49 97.9 72 18 148/90 (109) 99 97.9 10/12/25 08:00 Room Air* 0 21 Total Intake and Output 10/11/25 10/11/25 10/12/25 15:00 23:00 07:00 Intake Total 22 ml 1330 ml 772 ml Output Total 1301 ml 1500 ml Balance 22 ml 29 ml -728 ml medications Current Medications Medications Dose Ordered Sig/Gretta Route Start Time Stop Time Status Last Admin Dose Admin Diagnostic Test (Pha) 1 strip Q6HR 10/06/25 18:00 10/12/25 12:39 1 STRIP Insulin Human Regular Q6HR SC 10/06/25 18:00 10/12/25 12:57 2 UNITS Dextrose 50 ml UD PRN IV 10/06/25 13:45 Acetaminophen/ Hydrocodone Bitart 1 tab Q4HP PRN PO 10/06/25 13:45 10/11/25 21:32 1 TAB Ondansetron HCl 4 mg Q4HP PRN IV 10/06/25 13:45 10/06/25 18:29 4 MG Acetaminophen 650 mg Q6HP PRN PO 10/06/25 13:45 Hydrochlorothiazide 25 mg DAILY PO 10/07/25 10:00 10/12/25 10:08 25 MG Patient Own Medication 1 tab DAILY PO 10/07/25 10:00 UNV Patient Own Medication 1 tab DAILY PO 10/07/25 10:00 UNV Patient Own Medication 1 tab DAILY PO 10/07/25 10:00 UNV Atorvastatin Calcium 10 mg HS PO 10/06/25 22:00 10/11/25 21:32 10 MG Amlodipine Besylate 10 mg DAILY PO 10/07/25 10:00 10/12/25 10:07 10 MG Lisinopril 40 mg DAILY PO 10/07/25 10:00 10/12/25 10:07 40 MG Tamsulosin HCl 0.4 mg BIDPC PO 10/07/25 09:00 10/12/25 10:08 0.4 MG Levothyroxine Sodium 125 mcg QAM@0600 PO 10/07/25 06:00 10/12/25 05:44 125 MCG Temazepam 15 mg HSPRN PRN PO 10/07/25 22:15 10/09/25 21:03 15 MG Pantoprazole Sodium 40 mg DAILY@0600 PO 10/09/25 06:00 10/12/25 05:44 40 MG Vancomycin HCl 0 ml @ 0 mls/hr PER PHARMACY IV 10/10/25 18:00 Vancomycin HCl 250 ml @ 250 mls/hr Q12H IV 10/10/25 20:00 10/12/25 10:50 250 MLS/HR Gabapentin 300 mg TID PO 10/11/25 14:00 10/12/25 13:40 300 MG Hydromorphone HCl 0.25 mg Q4HPRN PRN IV 10/11/25 11:45 10/12/25 13:45 0.25 MG Ampicillin Sodium/ Sulbactam Sodium 3 gm/Sodium Chloride 100 ml @ 100 mls/hr Q6H IV 10/11/25 18:00 10/12/25 12:47 100 MLS/HR Duloxetine HCl 30 mg DAILY PO 10/12/25 10:00 10/12/25 10:07 30 MG Rivaroxaban 20 mg QPM PO 10/12/25 18:00 Examination General Appearance: Alert, Oriented X3, Cooperative, No acute distress HEENT: Atraumatic, PERRLA, EOMI, Mucous membrane moist/pink Respiratory: Clear to auscultation, Normal air movement Cardiovascular: Regular rate, Normal S1, Normal S2, No murmurs, no chest wall tenderness Abdominal: Normal bowel sounds, Soft, No tenderness, No hepatospenomegaly, No masses Extremities: tenderness in the calf Skin: No rashes, No breakdown, No significant lesion Neuro: Normal gait, Normal speech, Strength at 5/5 X4 ext, Normal tone, Sensation intact, Cranial nerves 3-12 NL, Reflexes 2+ Psych/Mental Status: Mental status NL, Mood NL laboratory and microbiology Laboratory Tests 10/12/25 13:37 10/12/25 07:10 Test 10/12/25 07:10 Range/Units Serum Glucose 121 H 74-106 mg/dL Microbiology Date/Time Source Procedure Growth Status 10/10/25 17:50 Leg Right Anaerobic Culture - Preliminary Resulted Problem List/Assessment/Plan Problem List/Assessment/Plan Assessment and plan Eryspelasis DVT Acute hypoxic respiratory failure on supplemental oxygen Ruled out PAD Ruled out PE Vancomycin and Unasyn Wound culture Admit to [facility] tele[facility] No compressions in the leg Heparin drip stopped. Started Xarelto Negative CT pulmonary angiography Supplemental O2, wean as tolerated Antiemetics Pain management Heparin started in ED, heparin drip Hemoglobin A1c ISS and Accu-Cheks Arterial duplex ordered NPO IV fluids Meloxicam PT eval Obesity Counseled on the importance of weight loss, exercise and dietary regimen Dyslipidemia Continue home medications Essential hypertension Continue home medications Target in-hospital blood pressure below 140/90 Type 2 diabetes mellitus Target in-hospital blood glucose between 140-180 Follow blood glucose levels History of bilateral knee replacement History of hip replacement Outpatient follow up with PCP on discharge History of partial thyroidectomy Outpatient follow up with PCP on discharge Goals of care discussed full code Case discussed with Dr. Whipple Plan discussed with: Patient My Orders My Orders Orders - SOCORRO ALMODOVAR Procedure Category Date Status Time Complete Blood Count LAB 10/13/25 Verified 05:00 Complete Blood Count LAB 10/14/25 Verified 05:00 Complete Blood Count LAB 10/15/25 Verified 05:00 Complete Blood Count LAB 10/16/25 Verified 05:00 Complete Blood Count LAB 10/17/25 Verified 05:00 Rivaroxaban Tablet PHA 10/12/25 In Process (Xarelto Tablet) 18:00 Apply Z-Guard ISABELLA 10/12/25 In Process 11:20 * Dietary Consult CONS 10/12/25 Transmitted 15:17 Cleanse Wound With ISABELLA 10/12/25 In Process Wound Clean 11:20 Complete Blood Count LAB 10/13/25 Verified 04:00 Comprehensive LAB 10/13/25 Verified Metabolic Panel 04:00 Dietary Evaluation Review Comments: Nutrition Recommendation: 1) CCHO 60gm + cardiac diet 2) Monitor PO intake, lab values, weight trend, and I/O Expected Outcomes/Goals: FU 3-5 days Intake to meet >75% estimated needs Lab values to improve Date of Service: Oct 12, 2025 Billing Provider: STEF LI MD Common Visit Codes: [id number] INP/OBS CARE(HIGH) SOCORRO ALMODOVAR RESIDENT Oct 12, 2025 17:10
[2025-10-12] MEDS: RIVAROXABAN 20 MG TAB PO SCH (18:16)
[2025-10-13] VITALS (7 sets, daily range): BP systolic 137–153; BP diastolic 88–101; PULSE 65–68; RESP 17–20; TEMP 97.6–98.5; O2SAT 93–95
[2025-10-13 06:39] LABS: Alanine Aminotransferase 16 U/L (7-40); Albumin 3.6 g/dL (3.2-4.8); Alkaline Phosphatase 66 U/L (46-116); Anion Gap 11 (5-15); Bilirubin, Total 0.4 mg/dL (0.2-1.0); Calcium 8.9 mg/dL (8.7-10.4); Carbon Dioxide 25 mmol/L (20-31); Chloride 103 mmol/L (98-107); Glucose 158 mg/dL (74-106); Potassium 4.2 mmol/L (3.5-5.1); Sodium 139 mmol/L (136-145); Total Protein 7.5 g/dL (5.7-8.2)
[2025-10-13 06:48] LABS: Hematocrit 35.6 % (41.0-53.0); Hemoglobin 12.0 g/dL (13.5-17.5); Mean Corpuscular Hemoglobin 28.2 pg (28.0-32.0); Mean Corpuscular Volume 83.8 fL (80.0-100.0); Nucleated Red Blood Cells % 0.3 %
[2025-10-13 06:49] LABS: BUN/Creatinine Ratio 15.8 (10.0-20.0); Blood Urea Nitrogen 16 mg/dL (9-23)
--- NOTE | 2025-10-13 11:24 | DVHPNRES ---
Progress Note Date Seen: Oct 13, 2025 Resident Creating Document: SOCORRO ALMODOVAR Medical Necessity Reason Pt with a Central, PICC or Fol: No Subjective Review of Systems Patient seen at bedside. Complains of worsening lesion on the overlying skin of the DVT. Surgeon reconsulted. Hany Bach is a 64-year-old male with past medical history of DVT in 1999 and in 2014 now on Xarelto, diabetes mellitus, hypertension, dyslipidemia, depression presented with complaints of pain and swelling in the right lower limb since Friday. He had a swelling in the right groin initially. Patient says that he put a compression stocking in and when he removed 2 days later he noticed the redness and swelling in the calf. He had an episode of epistaxis and bleeding from the foot in the past week so he had stopped the Xarelto PMHx: Xarelto, diabetes mellitus, hypertension, dyslipidemia, depression PSHx: Thyroidectomy, knee and hip replacement Family history: cancer in father Social history: denies smoking alcohol or drug use Allergic history: minocycline General: patient denies fever, fatigue, weakness, sweating, any recent changes in appetite and weight HEENT: No headaches, visual changes, hearing loss, tinnitus, nasal congestion and discharge, and sore throat. Cardiovascular: Denies chest pain, palpitations, dyspnea on exertion, orthopnea, or claudication. Respiratory: No cough, and wheezing. Gastrointestinal: Denies nausea, vomiting, dysphagia, odynophagia, heartburn, abdominal pain, flatulence, bloating, diarrhea, constipation, change in stool, or blood in stool. Genitourinary: No dysuria, hematuria, discharge, frequency, urgency, nocturia, incontinence, and urinary retention. Endocrine: No heat or cold intolerance, polydipsia, polyuria, and polyphagia. Neurological: No dizziness, extremity weakness and numbness, tremors, gait disturbance, seizures, and memory impairment. Psychiatric: Denies depression, anxiety,or insomnia. Musculoskeletal: complains of pain and swelling in the right leg Skin: No rashes, itching, skin lesion, changes in hair, nail, skin texture and breast. Hematologic/Lymphatic: Denies easy bruising, bleeding tendencies, or lymph node enlargement. Objective vital signs Vital Sign Date Time Temp Pulse Resp B/P (MAP) Pulse Ox O2 Delivery O2 Flow Rate FiO2 10/13/25 10:59 70 18 140/61 11/27/25 08:16 95 Room Air* 0 21 10/13/25 05:00 97.9 97.9 Total Intake and Output 10/12/25 10/12/25 10/13/25 15:00 23:00 07:00 Intake Total 624 ml 1240 ml 1200 ml Output Total 500 ml 1300 ml 725 ml Balance 124 ml -60 ml 475 ml medications Current Medications Medications Dose Ordered Sig/Gretta Route Start Time Stop Time Status Last Admin Dose Admin Diagnostic Test (Pha) 1 strip Q6HR 10/06/25 18:00 10/13/25 05:42 1 STRIP Insulin Human Regular Q6HR SC 10/06/25 18:00 10/13/25 00:28 3 UNITS Dextrose 50 ml UD PRN IV 10/06/25 13:45 Acetaminophen/ Hydrocodone Bitart 1 tab Q4HP PRN PO 10/06/25 13:45 10/13/25 04:00 1 TAB Ondansetron HCl 4 mg Q4HP PRN IV 10/06/25 13:45 10/06/25 18:29 4 MG Acetaminophen 650 mg Q6HP PRN PO 10/06/25 13:45 Hydrochlorothiazide 25 mg DAILY PO 10/07/25 10:00 10/13/25 10:16 25 MG Patient Own Medication 1 tab DAILY PO 10/07/25 10:00 UNV Patient Own Medication 1 tab DAILY PO 10/07/25 10:00 UNV Patient Own Medication 1 tab DAILY PO 10/07/25 10:00 UNV Atorvastatin Calcium 10 mg HS PO 10/06/25 22:00 10/12/25 21:15 10 MG Amlodipine Besylate 10 mg DAILY PO 10/07/25 10:00 10/13/25 10:17 10 MG Lisinopril 40 mg DAILY PO 10/07/25 10:00 10/13/25 10:17 40 MG Tamsulosin HCl 0.4 mg BIDPC PO 10/07/25 09:00 10/13/25 08:32 0.4 MG Levothyroxine Sodium 125 mcg QAM@0600 PO 10/07/25 06:00 10/13/25 05:40 125 MCG Temazepam 15 mg HSPRN PRN PO 10/07/25 22:15 10/09/25 21:03 15 MG Pantoprazole Sodium 40 mg DAILY@0600 PO 10/09/25 06:00 10/13/25 05:40 40 MG Vancomycin HCl 0 ml @ 0 mls/hr PER PHARMACY IV 10/10/25 18:00 Vancomycin HCl 250 ml @ 250 mls/hr Q12H IV 10/10/25 20:00 10/13/25 08:15 250 MLS/HR Gabapentin 300 mg TID PO 10/11/25 14:00 10/13/25 05:40 300 MG Hydromorphone HCl 0.25 mg Q4HPRN PRN IV 10/11/25 11:45 10/13/25 10:29 0.25 MG Ampicillin Sodium/ Sulbactam Sodium 3 gm/Sodium Chloride 100 ml @ 100 mls/hr Q6H IV 10/11/25 18:00 10/13/25 05:41 100 MLS/HR Duloxetine HCl 30 mg DAILY PO 10/12/25 10:00 10/13/25 10:16 30 MG Enoxaparin Sodium 110 mg Q12H SC 10/13/25 18:00 Examination General Appearance: Alert, Oriented X3, Cooperative, No acute distress HEENT: Atraumatic, PERRLA, EOMI, Mucous membrane moist/pink Respiratory: Clear to auscultation, Normal air movement Cardiovascular: Regular rate, Normal S1, Normal S2, No murmurs, no chest wall tenderness Abdominal: Normal bowel sounds, Soft, No tenderness, No hepatosplenomegaly, No masses Extremities: tenderness, erythema in the right calf. Skin breakdown and ?fluid filled lesions in the overlying skin Skin: No rashes, No breakdown, No significant lesion Neuro: Normal gait, Normal speech, Strength at 5/5 X4 ext, Normal tone, Sensation intact, Cranial nerves 3-12 NL, Reflexes 2+ Psych/Mental Status: Mental status NL, Mood NL laboratory and microbiology Laboratory Tests 10/13/25 05:50 Test 10/13/25 05:50 Range/Units Serum Glucose 158 H 74-106 mg/dL Microbiology Date/Time Source Procedure Growth Status 10/10/25 17:50 Leg Right Gram Stain - Final Resulted 10/10/25 17:50 Leg Right Anaerobic Culture - Preliminary Resulted 10/10/25 17:50 Aerobic Culture - Final Methicillin Resistant S.aureus Resulted Labs and/or images reviewed: Labs reviewed by me, Image(s) reviewed by me Problem List/Assessment/Plan Problem List/Assessment/Plan Assessment and plan Cellulitis with abscess of right lower extremity DVT Acute hypoxic respiratory failure on supplemental oxygen Ruled out PAD Ruled out PE Vancomycin and Unasyn Wound culture +ve for MRSA Admit to med surge telemetry No compressions in the leg Heparin drip stopped. Started Lovenox Negative CT pulmonary angiography Supplemental O2, wean as tolerated Antiemetics Pain management Heparin started in ED, heparin drip Hemoglobin A1c ISS and Accu-Cheks Arterial duplex normal IV fluids Meloxicam PT eval ongoing Morbid Obesity Counseled on the importance of weight loss, exercise and dietary regimen Dyslipidemia Continue home medications Essential hypertension Continue home medications Target in-hospital blood pressure below 140/90 Type 2 diabetes mellitus Target in-hospital blood glucose between 140-180 Follow blood glucose levels History of bilateral knee replacement History of hip replacement Outpatient follow up with PCP on discharge History of partial thyroidectomy Outpatient follow up with PCP on discharge Goals of care discussed with the patient for 20 minutes; full code Case discussed with Dr. Rojas Plan discussed with: Patient, Other (Nurse) My Orders My Orders Orders - SOCORRO ALMODOVAR RESIDENT Procedure Category Date Status Time Apply Z-Guard ISABELLA 10/12/25 In Process 11:20 * Dietary Consult CONS 10/12/25 Transmitted 15:17 Cleanse Wound With ISABELLA 10/12/25 In Process Wound Clean 11:20 * Surgical Consult CONS 10/13/25 Transmitted Dietary Evaluation Review Comments: Nutrition Recommendation: 1) CCHO 60gm + cardiac diet 2) Monitor PO intake, lab values, weight trend, and I/O Expected Outcomes/Goals: FU 3-5 days Intake to meet >75% estimated needs Lab values to improve Date of Service: Oct 13, 2025 Billing Provider: RAMÓN ROJAS MD Common Visit Codes: [id number] INP/OBS CARE(HIGH) Secondary Visit Codes: [id number] CARE PLAN 30 MINUTES (20 minutes) SOCORRO ALMODOVAR Oct 13, 2025 11:24 RAMÓN ROJAS MD Oct 17, 2025 09:21
--- NOTE | 2025-10-13 17:31 | DVH ---
Right lower extremity ultrasound. Date: 10/13/2025 03:16 PM Clinical History: signs of infection/abscess in the right lower extremity Comparison: None Technique: Multiple grayscale and color Doppler images in the area of clinical concern in the right lower extremity in the medial calf area. Findings/impression: 1. No fluid collection in the area of clinical concern in the right calf. 2. Mild subcutaneous edema in the right calf.
[2025-10-13] MEDS: ENOXAPARIN SOD 120 MG/0.8 ML SYRINGE SC SCH (17:32)
[2025-10-14] VITALS (9 sets, daily range): BP systolic 128–156; BP diastolic 80–100; PULSE 60–71; RESP 8–20; TEMP 97.4–98.2; O2SAT 92–96
[2025-10-14 05:41] LABS: Hematocrit 35.1 % (41.0-53.0); Hemoglobin 11.6 g/dL (13.5-17.5); Mean Corpuscular Hemoglobin 27.5 pg (28.0-32.0); Mean Corpuscular Volume 83.3 fL (80.0-100.0); Nucleated Red Blood Cells % 0.0 %
[2025-10-14 06:15] LABS: Alanine Aminotransferase 14 U/L (7-40); Alkaline Phosphatase 64 U/L (46-116); Anion Gap 10 (5-15); BUN/Creatinine Ratio 19.6 (10.0-20.0); Blood Urea Nitrogen 18 mg/dL (9-23); Calcium 8.9 mg/dL (8.7-10.4); Carbon Dioxide 26 mmol/L (20-31); Chloride 104 mmol/L (98-107); Glucose 155 mg/dL (74-106); Potassium 4.0 mmol/L (3.5-5.1); Sodium 140 mmol/L (136-145); Total Protein 7.2 g/dL (5.7-8.2)
[2025-10-14 06:16] LABS: Albumin 3.5 g/dL (3.2-4.8); Bilirubin, Total 0.3 mg/dL (0.2-1.0)
[2025-10-14] MEDS ORDERED: fentaNYL CITRATE 100 MCG/2 ML VL ONE (12:10)
[2025-10-14] MEDS ORDERED: MEPERIDINE HCL (25 MG/ML) 1ML VIAL ONE ×2 (12:10→12:33)
[2025-10-14] MEDS ORDERED: PROPOFOL 10 MG/ML 20 ML IV ONE (12:10)
[2025-10-14] MEDS: LIDOCAINE W/ EPINEPHRINE 1% 20ML VIAL ONE (12:19)
[2025-10-14] MEDS ORDERED: ONDANSETRON HCL 4 MG/2 ML VIAL ONE (12:40)
[2025-10-14] MEDS ORDERED: MEPERIDINE HCL (25 MG/ML) 1ML VIAL IV PRN (13:15)
[2025-10-14] MEDS ORDERED: ONDANSETRON HCL 4 MG/2 ML VIAL IV PRN (13:15)
--- NOTE | 2025-10-14 13:19 | DVHOP2 ---
Operative Report - 2 Report Details Date: 10/14/25 Preop Diagnosis: 1. Right lower extremity abscess Postop Diagnosis: 1. Same Surgeon: Lisandro Crawley MD Clean Up Worker: None Anesthesiologist: Dr. Tapia Anesthesia: General, Local Consent: The surgery and its risks including but not limited to infection, bleeding re quiring possible blood transfusion with the risk of hepatitis or HIV infection, open wound requiring local wound care, possible perioperative [place], stroke, DVT or PE were explained to the patient. All questions were answered to his satisfaction. He expressed verbal understanding and wished to proceed with the surgery. Complications: None Estimated Blood Loss: 20 mL Fluids: 350 mL Name of Procedure Performed Incision and drainage of right lower leg abscess Procedure Details Procedure Details: After induction of general anesthesia, patient's right lower extremity was prepped and draped in standard surgical fashion. Patient had two skin openings with serosanguineous drainage in the medial aspect of his right lower leg with significant induration erythema of the area. The opening was then gently explored and appeared to be connected subcutaneously. Both of the incisions had subcutaneous tunneling and so this was fully opened and the abscess cavity was swabbed for Gram stain and culture. There was moderate amount of pus that was drained from the area. The wall of the abscess were then curetted until healthier tissue was encountered. The area was then well irrigated with diluted Betadine irrigation and packed with half-inch iodoform packing strips. Surgical site was cleaned and dried dressings were applied. Approximately 12 mL of 1% lidocaine with epinephrine was used as a local anesthesia. The surgical site was cleaned and dried and dressings were applied. Sponge, needle, instrument count at the end of the case were reported to be correct by the nursing staff. Patient tolerated procedure well and was awake, extubated and transferred to recovery in stable condition. Specimen: Gram stain and culture of the right lower leg abscess Condition Stable Disposition Still a Patient LISANDRO CRAWLEY MD Oct 14, 2025 13:19
[2025-10-14] MEDS: ACETAMINOPHEN IV 1000 MG/100ML (10MG/ML) IV PRN (13:31)
[2025-10-14] MEDS: HYDROmorphone HCL 2 MG/ML VL/or syr IV PRN (13:35)
--- NOTE | 2025-10-14 15:18 | DVHPNRES ---
Progress Note Date Seen: Oct 14, 2025 Resident Creating Document: SOCORRO ALMODOVAR Medical Necessity Reason Pt with a Central, PICC or Fol: No Subjective Review of Systems Patient seen at bedside. Worsening of the wound in the leg. NPO for surgery today. Hany Bach is a 64-year-old male with past medical history of DVT in 1999 and in 2014 now on Xarelto, diabetes mellitus, hypertension, dyslipidemia, depression presented with complaints of pain and swelling in the right lower limb since Friday. He had a swelling in the right groin initially. Patient says that he put a compression stocking in and when he removed 2 days later he noticed the redness and swelling in the calf. He had an episode of epistaxis and bleeding from the foot in the past week so he had stopped the Xarelto Objective vital signs Vital Sign Date Time Temp Pulse Resp B/P (MAP) Pulse Ox O2 Delivery O2 Flow Rate FiO2 10/14/25 12:00 97.5 70 18 156/91 (112) 95 97.5 10/14/25 08:14 Room Air* 0 21 Total Intake and Output 10/13/25 10/13/25 10/14/25 15:00 23:00 07:00 Intake Total 900 ml 600 ml Output Total 550 ml 1400 ml Balance 350 ml -800 ml medications Current Medications Medications Dose Ordered Sig/Gretta Route Start Time Stop Time Status Last Admin Dose Admin Diagnostic Test (Pha) 1 strip Q6HR 10/06/25 18:00 10/14/25 11:32 1 STRIP Insulin Human Regular Q6HR SC 10/06/25 18:00 10/14/25 05:42 2 UNITS Dextrose 50 ml UD PRN IV 10/06/25 13:45 Acetaminophen/ Hydrocodone Bitart 1 tab Q4HP PRN PO 10/06/25 13:45 10/13/25 13:48 1 TAB Ondansetron HCl 4 mg Q4HP PRN IV 10/06/25 13:45 10/06/25 18:29 4 MG Acetaminophen 650 mg Q6HP PRN PO 10/06/25 13:45 Hydrochlorothiazide 25 mg DAILY PO 10/07/25 10:00 10/13/25 10:16 25 MG Patient Own Medication 1 tab DAILY PO 10/07/25 10:00 UNV Patient Own Medication 1 tab DAILY PO 10/07/25 10:00 UNV Patient Own Medication 1 tab DAILY PO 10/07/25 10:00 UNV Atorvastatin Calcium 10 mg HS PO 10/06/25 22:00 10/13/25 22:15 10 MG Amlodipine Besylate 10 mg DAILY PO 10/07/25 10:00 10/13/25 10:17 10 MG Lisinopril 40 mg DAILY PO 10/07/25 10:00 10/13/25 10:17 40 MG Tamsulosin HCl 0.4 mg BIDPC PO 10/07/25 09:00 10/13/25 17:38 0.4 MG Levothyroxine Sodium 125 mcg QAM@0600 PO 10/07/25 06:00 10/14/25 05:25 125 MCG Temazepam 15 mg HSPRN PRN PO 10/07/25 22:15 10/13/25 23:54 15 MG Pantoprazole Sodium 40 mg DAILY@0600 PO 10/09/25 06:00 10/14/25 05:24 40 MG Vancomycin HCl 0 ml @ 0 mls/hr PER PHARMACY IV 10/10/25 18:00 Vancomycin HCl 250 ml @ 250 mls/hr Q12H IV 10/10/25 20:00 10/14/25 08:48 250 MLS/HR Gabapentin 300 mg TID PO 10/11/25 14:00 10/14/25 05:25 300 MG Hydromorphone HCl 0.25 mg Q4HPRN PRN IV 10/11/25 11:45 10/14/25 05:26 0.25 MG Ampicillin Sodium/ Sulbactam Sodium 3 gm/Sodium Chloride 100 ml @ 100 mls/hr Q6H IV 10/11/25 18:00 10/14/25 05:47 100 MLS/HR Duloxetine HCl 30 mg DAILY PO 10/12/25 10:00 10/13/25 10:16 30 MG Enoxaparin Sodium 110 mg Q12H SC 10/13/25 18:00 Hold Examination General Appearance: Alert, Oriented X3, Cooperative, No acute distress HEENT: Atraumatic, PERRLA, EOMI, Mucous membrane moist/pink Respiratory: Clear to auscultation, Normal air movement Cardiovascular: Regular rate, Normal S1, Normal S2, No murmurs, no chest wall tenderness Abdominal: Normal bowel sounds, Soft, No tenderness, No hepatospenomegaly, No masses Extremities: tenderness, erythema in the right calf. Skin breakdown and ?fluid filled lesions in the overlying skin with color changes Skin: No rashes, No breakdown, No significant lesion Neuro: Normal gait, Normal speech, Strength at 5/5 X4 ext, Normal tone, Sensation intact, Cranial nerves 3-12 NL, Reflexes 2+ Psych/Mental Status: Mental status NL, Mood NL laboratory and microbiology Laboratory Tests 10/14/25 04:49 Test 10/14/25 04:49 Range/Units Serum Glucose 155 H 74-106 mg/dL Microbiology Date/Time Source Procedure Growth Status 10/10/25 17:50 Leg Right Gram Stain - Final Resulted 10/10/25 17:50 Leg Right Anaerobic Culture - Preliminary Resulted 10/10/25 17:50 Aerobic Culture - Final Methicillin Resistant S.aureus Resulted Labs and/or images reviewed: Labs reviewed by me, Image(s) reviewed by me Problem List/Assessment/Plan Problem List/Assessment/Plan Assessment and plan Right lower extremity cellulitis with abscesses DVT Acute hypoxic respiratory failure on supplemental oxygen Ruled out PAD Ruled out PE Vancomycin and Unasyn Wound culture +ve for MRSA Admit to med surge No compressions in the leg Heparin drip stopped. Started Lovenox Negative CT pulmonary angiography Supplemental O2, wean as tolerated Antiemetics Pain management Heparin started in ED, heparin drip Hemoglobin A1c ISS and Accu-Cheks Arterial duplex normal IV fluids Meloxicam PT eval ongoing Incision and drainage by General surgery today Morbid Obesity Counseled on the importance of weight loss, exercise and dietary regimen Dyslipidemia Continue home medications Essential hypertension Continue home medications Target in-hospital blood pressure below 140/90 Type 2 diabetes mellitus Target in-hospital blood glucose between 140-180 Follow blood glucose levels History of bilateral knee replacement History of hip replacement Outpatient follow up with PCP on discharge History of partial thyroidectomy Outpatient follow up with PCP on discharge Full code status Case discussed with Dr. Rojas Plan discussed with: Patient, Other (Nurse) Dietary Evaluation Review Comments: Nutrition Recommendation: 1) CCHO 60gm + cardiac diet 2) Monitor PO intake, lab values, weight trend, and I/O Expected Outcomes/Goals: FU 3-5 days Intake to meet >75% estimated needs Lab values to improve Date of Service: Oct 14, 2025 Billing Provider: RAMÓN ROJAS MD Common Visit Codes: [id number] INP/OBS CARE(HIGH) SOCORRO ALMODOVAR RESIDENT Oct 14, 2025 15:18 RAMÓN ROJAS MD Oct 17, 2025 09:22
[2025-10-14] MEDS: ENOXAPARIN SOD 120 MG/0.8 ML SYRINGE SC SCH (16:23)
[2025-10-14] MEDS: KETOROLAC TROMETH 30 MG/ML 1ML VIAL IV ONE (23:54)
[2025-10-15] VITALS (8 sets, daily range): BP systolic 138–164; BP diastolic 86–104; PULSE 60–70; RESP 16–61; TEMP 98–98.8; O2SAT 92–96
[2025-10-15 05:48] LABS: Hematocrit 33.7 % (41.0-53.0); Hemoglobin 11.2 g/dL (13.5-17.5); Mean Corpuscular Hemoglobin 27.8 pg (28.0-32.0); Mean Corpuscular Volume 84.0 fL (80.0-100.0); Nucleated Red Blood Cells % 0.0 %
--- NOTE | 2025-10-15 10:46 | DVHPNRES ---
Progress Note Date Seen: Oct 15, 2025 Resident Creating Document: ALISHA DOWNS RESDIENT Medical Necessity Reason Pt with a Central, PICC or Fol: No Subjective Review of Systems Hany Bach is a 64-year-old male with past medical history of DVT in 1999 and in 2014 now on Xarelto, diabetes mellitus, hypertension, dyslipidemia, depression presented with complaints of pain and swelling in the right lower limb since Friday. He had a swelling in the right groin initially. Patient says that he put a compression stocking in and when he removed 2 days later he noticed the redness and swelling in the calf. He had an episode of epistaxis and bleeding from the foot in the past week so he had stopped the Xarelto Objective vital signs Vital Sign Date Time Temp Pulse Resp B/P (MAP) Pulse Ox O2 Delivery O2 Flow Rate FiO2 10/15/25 09:13 164/104 10/15/25 09:00 98.7 70 61 92 98.7 10/14/25 20:00 Room Air* 0 21 Total Intake and Output 10/14/25 10/14/25 10/15/25 14:59 22:59 06:59 Intake Total 0 ml 500 ml 600 ml Output Total 300 ml 400 ml Balance 0 ml 200 ml 200 ml medications Current Medications Medications Dose Ordered Sig/Gretta Route Start Time Stop Time Status Last Admin Dose Admin Diagnostic Test (Pha) 1 strip Q6HR 10/06/25 18:00 10/15/25 05:39 1 STRIP Insulin Human Regular Q6HR SC 10/06/25 18:00 10/15/25 05:46 2 UNITS Dextrose 50 ml UD PRN IV 10/06/25 13:45 Acetaminophen/ Hydrocodone Bitart 1 tab Q4HP PRN PO 10/06/25 13:45 10/15/25 08:16 1 TAB Ondansetron HCl 4 mg Q4HP PRN IV 10/06/25 13:45 10/06/25 18:29 4 MG Acetaminophen 650 mg Q6HP PRN PO 10/06/25 13:45 Hydrochlorothiazide 25 mg DAILY PO 10/07/25 10:00 10/15/25 09:13 25 MG Patient Own Medication 1 tab DAILY PO 10/07/25 10:00 UNV Patient Own Medication 1 tab DAILY PO 10/07/25 10:00 UNV Patient Own Medication 1 tab DAILY PO 10/07/25 10:00 UNV Atorvastatin Calcium 10 mg HS PO 10/06/25 22:00 10/14/25 21:06 10 MG Amlodipine Besylate 10 mg DAILY PO 10/07/25 10:00 10/15/25 09:12 10 MG Lisinopril 40 mg DAILY PO 10/07/25 10:00 10/15/25 09:13 40 MG Tamsulosin HCl 0.4 mg BIDPC PO 10/07/25 09:00 10/15/25 09:13 0.4 MG Levothyroxine Sodium 125 mcg QAM@0600 PO 10/07/25 06:00 10/15/25 05:38 125 MCG Pantoprazole Sodium 40 mg DAILY@0600 PO 10/09/25 06:00 10/15/25 05:38 40 MG Vancomycin HCl 0 ml @ 0 mls/hr PER PHARMACY IV 10/10/25 18:00 Vancomycin HCl 250 ml @ 250 mls/hr Q12H IV 10/10/25 20:00 10/15/25 08:14 250 MLS/HR Gabapentin 300 mg TID PO 10/11/25 14:00 10/15/25 05:38 300 MG Hydromorphone HCl 0.25 mg Q4HPRN PRN IV 10/11/25 11:45 10/15/25 01:31 0.25 MG Ampicillin Sodium/ Sulbactam Sodium 3 gm/Sodium Chloride 100 ml @ 100 mls/hr Q6H IV 10/11/25 18:00 10/15/25 05:39 100 MLS/HR Duloxetine HCl 30 mg DAILY PO 10/12/25 10:00 10/15/25 09:10 30 MG Enoxaparin Sodium 110 mg Q12H SC 10/14/25 15:30 10/15/25 02:56 110 MG Examination General Appearance: Alert, Oriented X3, Cooperative, No acute distress HEENT: Atraumatic, PERRLA, EOMI, Mucous membrane moist/pink Respiratory: Clear to auscultation, Normal air movement Cardiovascular: Regular rate, Normal S1, Normal S2, No murmurs, no chest wall tenderness Abdominal: Normal bowel sounds, Soft, No tenderness, No hepatosplenomegaly, No masses Extremities: Status post incision and drainage, mild tenderness, erythema in the right calf. No sign of compartment syndrome Skin: No rashes, No breakdown, No significant lesion Neuro: Normal gait, Normal speech, Strength at 5/5 X4 ext, Normal tone, Sensation intact, Cranial nerves 3-12 NL, Reflexes 2+ Psych/Mental Status: Mental status NL, Mood NL laboratory and microbiology Laboratory Tests 10/15/25 04:37 10/14/25 04:49 Test 10/14/25 04:49 Range/Units Serum Glucose 155 H 74-106 mg/dL Microbiology Date/Time Source Procedure Growth Status 10/14/25 12:41 Leg Right Gram Stain Pending Resulted 10/14/25 12:41 Leg Right Anaerobic Culture Pending Resulted 10/14/25 12:41 Leg Right Aerobic Culture - Preliminary Resulted Labs and/or images reviewed: Labs reviewed by me, Image(s) reviewed by me Problem List/Assessment/Plan Problem List/Assessment/Plan Suspected Sepsis, due to cellulitis Cellulitis with abscesses, status post incision and drainage DVT Acute hypoxic respiratory failure on supplemental oxygen Ruled out PAD Ruled out PE Vancomycin and Unasyn Wound culture +ve for MRSA Admit to med [facility] [place] telemetry No compressions in the leg Heparin drip stopped. Started Lovenox Negative CT pulmonary angiography Supplemental O2, wean as tolerated Antiemetics Pain management Heparin started in ED, heparin drip Hemoglobin A1c ISS and Accu-Cheks Arterial duplex normal IV fluids Meloxicam PT eval ongoing Incision and drainage Morbid Obesity Counseled on the importance of weight loss, exercise and dietary regimen Dyslipidemia Continue home medications Essential hypertension Continue home medications Target in-hospital blood pressure below 140/90 Type 2 diabetes mellitus Target in-hospital blood glucose between 140-180 Follow blood glucose levels History of bilateral knee replacement History of hip replacement Outpatient follow up with PCP on discharge History of partial thyroidectomy Outpatient follow up with PCP on discharge On 10/15, the patient seen and examined at the bedside. Patient is still complaining of right lower limb discomfort. Surgical area is assist, status post incision and drainage, with no sign of compartment syndrome. Full code status Case discussed with Dr. Carranza Plan discussed with: Patient, Other (RN) Dietary Evaluation Review Comments: Nutrition Recommendation: 1) CCHO 60gm + cardiac diet 2) Monitor PO intake, lab values, weight trend, and I/O Expected Outcomes/Goals: FU 3-5 days Intake to meet >75% estimated needs Lab values to improve Date of Service: Oct 15, 2025 Billing Provider: RAMÓN CARRANZA MD Common Visit Codes: [id number] INP/OBS CARE(HIGH) PIODIANNEBIMAL HUBERANDERSON CARTY Oct 15, 2025 10:46 RAMÓN CARRANZA MD Oct 17, 2025 09:24
--- NOTE | 2025-10-15 10:50 | DVHPN2 ---
Progress Note - Dictate Date Seen: Oct 15, 2025 Medical Necessity Reason Pt with a Central, PICC or Fol: No Subjective E: no major events o/n. no complaints. vital signs Vital Sign Date Time Temp Pulse Resp B/P (MAP) Pulse Ox O2 Delivery O2 Flow Rate FiO2 10/15/25 09:13 164/104 10/15/25 09:00 98.7 70 61 92 98.7 10/14/25 20:00 Room Air* 0 21 Total Intake and Output 10/14/25 10/14/25 10/15/25 15:00 23:00 07:00 Intake Total 0 ml 500 ml 600 ml Output Total 300 ml 400 ml Balance 0 ml 200 ml 200 ml medications Current Medications Medications Dose Ordered Sig/Gretta Route Start Time Stop Time Status Last Admin Dose Admin Diagnostic Test (Pha) 1 strip Q6HR 10/06/25 18:00 10/15/25 05:39 1 STRIP Insulin Human Regular Q6HR SC 10/06/25 18:00 10/15/25 05:46 2 UNITS Dextrose 50 ml UD PRN IV 10/06/25 13:45 Acetaminophen/ Hydrocodone Bitart 1 tab Q4HP PRN PO 10/06/25 13:45 10/15/25 08:16 1 TAB Ondansetron HCl 4 mg Q4HP PRN IV 10/06/25 13:45 10/06/25 18:29 4 MG Acetaminophen 650 mg Q6HP PRN PO 10/06/25 13:45 Hydrochlorothiazide 25 mg DAILY PO 10/07/25 10:00 10/15/25 09:13 25 MG Patient Own Medication 1 tab DAILY PO 10/07/25 10:00 UNV Patient Own Medication 1 tab DAILY PO 10/07/25 10:00 UNV Patient Own Medication 1 tab DAILY PO 10/07/25 10:00 UNV Atorvastatin Calcium 10 mg HS PO 10/06/25 22:00 10/14/25 21:06 10 MG Amlodipine Besylate 10 mg DAILY PO 10/07/25 10:00 10/15/25 09:12 10 MG Lisinopril 40 mg DAILY PO 10/07/25 10:00 10/15/25 09:13 40 MG Tamsulosin HCl 0.4 mg BIDPC PO 10/07/25 09:00 10/15/25 09:13 0.4 MG Levothyroxine Sodium 125 mcg QAM@0600 PO 10/07/25 06:00 10/15/25 05:38 125 MCG Pantoprazole Sodium 40 mg DAILY@0600 PO 10/09/25 06:00 10/15/25 05:38 40 MG Vancomycin HCl 0 ml @ 0 mls/hr PER PHARMACY IV 10/10/25 18:00 Vancomycin HCl 250 ml @ 250 mls/hr Q12H IV 10/10/25 20:00 10/15/25 08:14 250 MLS/HR Gabapentin 300 mg TID PO 10/11/25 14:00 10/15/25 05:38 300 MG Hydromorphone HCl 0.25 mg Q4HPRN PRN IV 10/11/25 11:45 10/15/25 01:31 0.25 MG Ampicillin Sodium/ Sulbactam Sodium 3 gm/Sodium Chloride 100 ml @ 100 mls/hr Q6H IV 10/11/25 18:00 10/15/25 05:39 100 MLS/HR Duloxetine HCl 30 mg DAILY PO 10/12/25 10:00 10/15/25 09:10 30 MG Enoxaparin Sodium 110 mg Q12H SC 10/14/25 15:30 10/15/25 02:56 110 MG objective GEN: NAD RLE: open surgical site with min sang drainage but no more purulent discharge. slt less erythema with decreased edema. laboratory and microbiology Laboratory Tests 10/15/25 04:37 10/14/25 04:49 Test 10/14/25 04:49 Range/Units Serum Glucose 155 H 74-106 mg/dL Assessment/Plan A: 1. s/p I+D right lower leg abscess P: 1. cont BID local wound care 2. stable from surgery POV for DC. 3. f/u next week in clinic. call [phone] for appt Dietary Evaluation Review Comments: Nutrition Recommendation: 1) CCHO 60gm + cardiac diet 2) Monitor PO intake, lab values, weight trend, and I/O Expected Outcomes/Goals: FU 3-5 days Intake to meet >75% estimated needs Lab values to improve Plan discussed with: Patient LISANDRO MEI MD Oct 15, 2025 10:50
[2025-10-15] MEDS: HYDROcodone-ACET 10/325MG TAB PO PRN (15:29)
[2025-10-16 01:00] VITALS: BP 156/97; PULSE 72; RESP 18; TEMP 98; O2SAT 94
[2025-10-16 05:00] VITALS: BP 140/90; PULSE 63; RESP 16; TEMP 98.3; O2SAT 95
[2025-10-16] MEDS: ACETAMINOPHEN 325 MG TAB PO PRN (05:26)
[2025-10-16 05:44] LABS: Hematocrit 34.3 % (41.0-53.0); Hemoglobin 11.0 g/dL (13.5-17.5); Mean Corpuscular Hemoglobin 27.0 pg (28.0-32.0); Mean Corpuscular Volume 83.7 fL (80.0-100.0); Nucleated Red Blood Cells % 0.0 %
[2025-10-16 05:58] LABS: Alanine Aminotransferase 11 U/L (7-40); Albumin 3.4 g/dL (3.2-4.8); Alkaline Phosphatase 65 U/L (46-116); Anion Gap 9 (5-15); BUN/Creatinine Ratio 18.5 (10.0-20.0); Blood Urea Nitrogen 22 mg/dL (9-23); Carbon Dioxide 27 mmol/L (20-31); Chloride 104 mmol/L (98-107); Potassium 4.3 mmol/L (3.5-5.1); Sodium 140 mmol/L (136-145); Total Protein 7.1 g/dL (5.7-8.2)
[2025-10-16 05:59] LABS: Calcium 8.6 mg/dL (8.7-10.4); Glucose 120 mg/dL (74-106)
[2025-10-16 06:03] LABS: Bilirubin, Total 0.3 mg/dL (0.2-1.0)
[2025-10-16 09:00] VITALS: BP 156/88; PULSE 61; RESP 16; TEMP 97.5; O2SAT 94
[2025-10-16] MEDS: APIXABAN 5 MG TAB PO SCH (11:42)
[2025-10-16] MEDS ORDERED: RIVA20TA PO (11:42)
[2025-10-16 13:00] VITALS: BP 146/103; PULSE 77; RESP 18; TEMP 97.2; O2SAT 95
[2025-10-16] MEDS: RIVAROXABAN 20 MG TAB PO SCH (13:15)
--- NOTE | 2025-10-16 14:56 | DVHPN2 ---
Progress Note - Dictate Date Seen: Oct 16, 2025 Medical Necessity Reason Pt with a Central, PICC or Fol: No Subjective E: no major events o/n. no complaints. vital signs Vital Sign Date Time Temp Pulse Resp B/P (MAP) Pulse Ox O2 Delivery O2 Flow Rate FiO2 10/16/25 13:17 84 17 141/77 10/16/25 13:00 97.2 95 97.2 10/16/25 08:00 Room Air* 0 21 Total Intake and Output 10/15/25 10/15/25 10/16/25 15:00 23:00 07:00 Intake Total 600 ml 565 ml Output Total 700 ml 300 ml Balance -100 ml 265 ml medications Current Medications Medications Dose Ordered Sig/Gretta Route Start Time Stop Time Status Last Admin Dose Admin Diagnostic Test (Pha) 1 strip Q6HR 10/06/25 18:00 10/16/25 11:41 1 STRIP Insulin Human Regular Q6HR SC 10/06/25 18:00 10/16/25 05:25 2 UNITS Dextrose 50 ml UD PRN IV 10/06/25 13:45 Ondansetron HCl 4 mg Q4HP PRN IV 10/06/25 13:45 10/06/25 18:29 4 MG Acetaminophen 650 mg Q6HP PRN PO 10/06/25 13:45 10/16/25 05:26 650 MG Hydrochlorothiazide 25 mg DAILY PO 10/07/25 10:00 10/16/25 08:17 25 MG Patient Own Medication 1 tab DAILY PO 10/07/25 10:00 UNV Patient Own Medication 1 tab DAILY PO 10/07/25 10:00 UNV Patient Own Medication 1 tab DAILY PO 10/07/25 10:00 UNV Atorvastatin Calcium 10 mg HS PO 10/06/25 22:00 10/15/25 21:07 10 MG Amlodipine Besylate 10 mg DAILY PO 10/07/25 10:00 10/16/25 08:18 10 MG Lisinopril 40 mg DAILY PO 10/07/25 10:00 10/16/25 08:18 40 MG Tamsulosin HCl 0.4 mg BIDPC PO 10/07/25 09:00 10/16/25 08:17 0.4 MG Levothyroxine Sodium 125 mcg QAM@0600 PO 10/07/25 06:00 10/16/25 05:25 125 MCG Pantoprazole Sodium 40 mg DAILY@0600 PO 10/09/25 06:00 10/16/25 05:26 40 MG Vancomycin HCl 0 ml @ 0 mls/hr PER PHARMACY IV 10/10/25 18:00 Gabapentin 300 mg TID PO 10/11/25 14:00 10/16/25 13:15 300 MG Hydromorphone HCl 0.25 mg Q4HPRN PRN IV 10/11/25 11:45 10/16/25 13:17 0.25 MG Ampicillin Sodium/ Sulbactam Sodium 3 gm/Sodium Chloride 100 ml @ 100 mls/hr Q6H IV 10/11/25 18:00 10/16/25 11:41 100 MLS/HR Duloxetine HCl 30 mg DAILY PO 10/12/25 10:00 10/16/25 08:18 30 MG Acetaminophen/ Hydrocodone Bitart 1 tab Q4HP PRN PO 10/15/25 11:00 10/16/25 08:33 1 TAB Vancomycin HCl 350 ml @ 200 mls/hr Q24H IV 10/16/25 20:00 Rivaroxaban 20 mg DAILY PO 10/17/25 10:00 objective GEN: NAD RLE: open surgical site with min sang drainage. slt less erythema with decreased edema. laboratory and microbiology Laboratory Tests 10/16/25 04:47 Test 10/16/25 04:47 Range/Units Serum Glucose 120 H 74-106 mg/dL Assessment/Plan A: 1. s/p I+D right lower leg abscess POD #2 stable. P: 1. cont BID local wound care 2. stable from surgery POV for DC. 3. f/u next week in clinic. call [phone] for appt Dietary Evaluation Review Comments: Nutrition Recommendation: 1) CCHO 60gm + cardiac diet 2) Monitor PO intake, lab values, weight trend, and I/O Expected Outcomes/Goals: FU 3-5 days Intake to meet >75% estimated needs Lab values to improve Plan discussed with: Patient LISANDRO MEI MD Oct 16, 2025 14:56
--- NOTE | 2025-10-16 15:24 | DVHPNRES ---
Progress Note Date Seen: Oct 16, 2025 Resident Creating Document: SOCORRO ALMODOVAR Medical Necessity Reason Pt with a Central, PICC or Fol: No Subjective Review of Systems Patient seen at bedside. Status post I&D. Patient complaining of pain in RLE. Objective vital signs Vital Sign Date Time Temp Pulse Resp B/P (MAP) Pulse Ox O2 Delivery O2 Flow Rate FiO2 10/16/25 13:17 84 17 141/77 10/16/25 13:00 97.2 95 97.2 10/16/25 08:00 Room Air* 0 21 Total Intake and Output 10/15/25 10/15/25 10/16/25 15:00 23:00 07:00 Intake Total 600 ml 565 ml Output Total 700 ml 300 ml Balance -100 ml 265 ml medications Current Medications Medications Dose Ordered Sig/Gretta Route Start Time Stop Time Status Last Admin Dose Admin Diagnostic Test (Pha) 1 strip Q6HR 10/06/25 18:00 10/16/25 11:41 1 STRIP Insulin Human Regular Q6HR SC 10/06/25 18:00 10/16/25 05:25 2 UNITS Dextrose 50 ml UD PRN IV 10/06/25 13:45 Ondansetron HCl 4 mg Q4HP PRN IV 10/06/25 13:45 10/06/25 18:29 4 MG Acetaminophen 650 mg Q6HP PRN PO 10/06/25 13:45 10/16/25 05:26 650 MG Hydrochlorothiazide 25 mg DAILY PO 10/07/25 10:00 10/16/25 08:17 25 MG Patient Own Medication 1 tab DAILY PO 10/07/25 10:00 UNV Patient Own Medication 1 tab DAILY PO 10/07/25 10:00 UNV Patient Own Medication 1 tab DAILY PO 10/07/25 10:00 UNV Atorvastatin Calcium 10 mg HS PO 10/06/25 22:00 10/15/25 21:07 10 MG Amlodipine Besylate 10 mg DAILY PO 10/07/25 10:00 10/16/25 08:18 10 MG Lisinopril 40 mg DAILY PO 10/07/25 10:00 10/16/25 08:18 40 MG Tamsulosin HCl 0.4 mg BIDPC PO 10/07/25 09:00 10/16/25 08:17 0.4 MG Levothyroxine Sodium 125 mcg QAM@0600 PO 10/07/25 06:00 10/16/25 05:25 125 MCG Pantoprazole Sodium 40 mg DAILY@0600 PO 10/09/25 06:00 10/16/25 05:26 40 MG Vancomycin HCl 0 ml @ 0 mls/hr PER PHARMACY IV 10/10/25 18:00 Gabapentin 300 mg TID PO 10/11/25 14:00 10/16/25 13:15 300 MG Hydromorphone HCl 0.25 mg Q4HPRN PRN IV 10/11/25 11:45 10/16/25 13:17 0.25 MG Ampicillin Sodium/ Sulbactam Sodium 3 gm/Sodium Chloride 100 ml @ 100 mls/hr Q6H IV 10/11/25 18:00 10/16/25 11:41 100 MLS/HR Duloxetine HCl 30 mg DAILY PO 10/12/25 10:00 10/16/25 08:18 30 MG Acetaminophen/ Hydrocodone Bitart 1 tab Q4HP PRN PO 10/15/25 11:00 10/16/25 15:07 1 TAB Vancomycin HCl 350 ml @ 200 mls/hr Q24H IV 10/16/25 20:00 Rivaroxaban 20 mg DAILY PO 10/17/25 10:00 Examination General Appearance: Alert, Oriented X3, Cooperative, No acute distress HEENT: Atraumatic, PERRLA, EOMI, Mucous membrane moist/pink Respiratory: Clear to auscultation, Normal air movement Cardiovascular: Regular rate, Normal S1, Normal S2, No murmurs, no chest wall tenderness Abdominal: Normal bowel sounds, Soft, No tenderness, No hepatospenomegaly, No masses Extremities: status post I&D, wound dressed and bandage wrapped. Skin: No rashes, No breakdown, No significant lesion Neuro: Normal gait, Normal speech, Strength at 5/5 X4 ext, Normal tone, Sensation intact, Cranial nerves 3-12 NL, Reflexes 2+ Psych/Mental Status: Mental status NL, Mood NL laboratory and microbiology Laboratory Tests 10/16/25 04:47 Test 10/16/25 04:47 Range/Units Serum Glucose 120 H 74-106 mg/dL Microbiology Date/Time Source Procedure Growth Status 10/14/25 12:41 Leg Right Gram Stain Pending Resulted 10/14/25 12:41 Leg Right Anaerobic Culture - Preliminary No growth Resulted 10/14/25 12:41 Aerobic Culture - Preliminary Methicillin Resistant S.aureus Resulted Labs and/or images reviewed: Labs reviewed by me, Image(s) reviewed by me Problem List/Assessment/Plan Problem List/Assessment/Plan Assessment and plan Suspected sepsis due to right lower extremity cellulitis with abscess status post insulin and drainage Right lower extremity cellulitis with abscesses status post incision and drainage Severe pain of RLE due to above DVT Acute hypoxic respiratory failure on supplemental oxygen Ruled out PAD Ruled out PE Vancomycin and Unasyn Wound culture +ve for MRSA Admit to med surge No compressions in the leg Heparin drip stopped. Started Lovenox Negative CT pulmonary angiography Supplemental O2, wean as tolerated Antiemetics Pain management Heparin started in ED, heparin drip Hemoglobin A1c ISS and Accu-Cheks Arterial duplex normal IV fluids Meloxicam PT eval ongoing Status post Incision and drainage; pending abscesses cultures Morbid Obesity Counseled on the importance of weight loss, exercise and dietary regimen Dyslipidemia Continue home medications Essential hypertension Continue home medications Target in-hospital blood pressure below 140/90 Type 2 diabetes mellitus Target in-hospital blood glucose between 140-180 Follow blood glucose levels History of bilateral knee replacement History of hip replacement Outpatient follow up with PCP on discharge History of partial thyroidectomy Outpatient follow up with PCP on discharge Full Code Case discussed with Dr. Carranza Plan discussed with: Patient, Other (Nurse) My Orders My Orders Orders - SOCORRO ALMODOVAR Procedure Category Date Status Time Complete Blood Count LAB 10/17/25 Verified 04:00 Comprehensive LAB 10/17/25 Verified Metabolic Panel 04:00 Dietary Evaluation Review Comments: Nutrition Recommendation: 1) CCHO 60gm + cardiac diet 2) Monitor PO intake, lab values, weight trend, and I/O Expected Outcomes/Goals: FU 3-5 days Intake to meet >75% estimated needs Lab values to improve Date of Service: Oct 16, 2025 Billing Provider: RAMÓN CARRANZA MD Common Visit Codes: [id number] INP/OBS CARE(HIGH) SOCORRO ALMODOVAR Oct 16, 2025 15:24 RAMÓN CARRANZA MD Oct 17, 2025 09:27
[2025-10-16 17:00] VITALS: BP 127/95; PULSE 71; RESP 16; TEMP 97.8; O2SAT 95
[2025-10-16] MEDS: VANCOMYCIN 1.75GM/350ML 350 ML IV SCH (20:12)
[2025-10-16 20:49] VITALS: BP 147/90; PULSE 70; RESP 18; TEMP 98.6; O2SAT 96
[2025-10-17] VITALS (7 sets, daily range): BP systolic 137–163; BP diastolic 85–112; PULSE 66–78; RESP 17–19; TEMP 97.8–98.8; O2SAT 93–97
[2025-10-17 06:57] LABS: Hematocrit 35.9 % (41.0-53.0); Hemoglobin 11.8 g/dL (13.5-17.5); Mean Corpuscular Hemoglobin 27.5 pg (28.0-32.0); Mean Corpuscular Volume 83.6 fL (80.0-100.0); Nucleated Red Blood Cells % 0.0 %
[2025-10-17 07:16] LABS: Alanine Aminotransferase 12 U/L (7-40); Albumin 3.7 g/dL (3.2-4.8); Alkaline Phosphatase 70 U/L (46-116); Anion Gap 7 (5-15); BUN/Creatinine Ratio 23.6 (10.0-20.0); Bilirubin, Total 0.4 mg/dL (0.2-1.0); Blood Urea Nitrogen 21 mg/dL (9-23); Calcium 8.9 mg/dL (8.7-10.4); Carbon Dioxide 30 mmol/L (20-31); Chloride 102 mmol/L (98-107); Glucose 95 mg/dL (74-106); Potassium 4.3 mmol/L (3.5-5.1); Sodium 139 mmol/L (136-145); Total Protein 7.7 g/dL (5.7-8.2)
[2025-10-17] MEDS: RIVAROXABAN 20 MG TAB PO SCH (11:43)
[2025-10-17] MEDS ORDERED: BACDST PO (11:54)
[2025-10-17] MEDS ORDERED: NAPR5TAB4 PO (14:40)
[2025-10-17] MEDS ORDERED: ACET-1079 PO (14:40)
[2025-10-17] MEDS ORDERED: PANT40TA2 PO (14:40)
[2025-10-17] MEDS ORDERED: HYDR-4798 PO (15:08)
--- NOTE | 2025-10-17 16:18 | DVHPNRES ---
Progress Note Date Seen: Oct 17, 2025 Resident Creating Document: SOCORRO ALMODOVAR Medical Necessity Reason Pt with a Central, PICC or Fol: No Subjective Review of Systems Patient seen at bedside. Status post I&D. Poorly controlled pain. Hany Bach is a 64-year-old male with past medical history of DVT in 1999 and in 2014 now on Xarelto, diabetes mellitus, hypertension, dyslipidemia, depression presented with complaints of pain and swelling in the right lower limb since Friday. He had a swelling in the right groin initially. Patient says that he put a compression stocking in and when he removed 2 days later he noticed the redness and swelling in the calf. He had an episode of epistaxis and bleeding from the foot in the past week so he had stopped the Xarelto PMHx: Xarelto, diabetes mellitus, hypertension, dyslipidemia, depression PSHx: Thyroidectomy, knee and hip replacement Family history: cancer in father Social history: denies smoking alcohol or drug use Allergic history: minocycline General: patient denies fever, fatigue, weaknes, sweating, any recent changes in appetite and weight HEENT: No headaches, visiual changes, hearing loss, tinnitus, nasal congestion and discharge, and sore throat. Cardiovascular: Denies chest pain, palpitations, dyspnea on exertion, orthopnea, or claudication. Respiratory: No cough, and wheezing. Gastrointestinal: Denies nausea, vomiting, dysphagia, odynophagia, heartburn, abdominal pain, flatulence, bloating, diarrhea, constipation, change in stool, or blood in stool. Genitourinary: No dysuria, hematuria, discharge, frequency, urgency, nocturia, incontinence, and urinary retention. Endocrine: No heat or cold intolerance, polydipsia, polyuria, and polyphagia. Neurological: No dizziness, extremity weakness and numbness, tremors, gait disturbance, seizures, and memory impairment. Psychiatric: Denies depression, anxiety,or insomnia. Musculoskeletal: complains of pain and swelling in the right leg Skin: No rashes, itching, skin lesion, changes in hair, nail, skin texture and breast. Hematologic/Lymphatic: Denies easy bruising, bleeding tendencies, or lymph node enlargement. Objective vital signs Vital Sign Date Time Temp Pulse Resp B/P (MAP) Pulse Ox O2 Delivery O2 Flow Rate FiO2 10/17/25 13:00 98.0 78 18 163/112 (129) 96 98.0 10/17/25 08:00 Room Air* 0 21 Total Intake and Output 10/16/25 10/16/25 10/17/25 15:00 23:00 07:00 Intake Total 350 ml 930 ml 800 ml Output Total 250 ml 1195 ml 800 ml Balance 100 ml -265 ml 0 ml medications Current Medications Medications Dose Ordered Sig/Gretta Route Start Time Stop Time Status Last Admin Dose Admin Diagnostic Test (Pha) 1 strip Q6HR 10/06/25 18:00 10/17/25 11:43 1 STRIP Insulin Human Regular Q6HR SC 10/06/25 18:00 10/16/25 18:37 2 UNITS Dextrose 50 ml UD PRN IV 10/06/25 13:45 Ondansetron HCl 4 mg Q4HP PRN IV 10/06/25 13:45 10/06/25 18:29 4 MG Acetaminophen 650 mg Q6HP PRN PO 10/06/25 13:45 10/16/25 05:26 650 MG Hydrochlorothiazide 25 mg DAILY PO 10/07/25 10:00 10/17/25 11:43 25 MG Patient Own Medication 1 tab DAILY PO 10/07/25 10:00 UNV Patient Own Medication 1 tab DAILY PO 10/07/25 10:00 UNV Patient Own Medication 1 tab DAILY PO 10/07/25 10:00 UNV Atorvastatin Calcium 10 mg HS PO 10/06/25 22:00 10/16/25 20:48 10 MG Amlodipine Besylate 10 mg DAILY PO 10/07/25 10:00 10/17/25 11:42 10 MG Lisinopril 40 mg DAILY PO 10/07/25 10:00 10/17/25 11:42 40 MG Tamsulosin HCl 0.4 mg BIDPC PO 10/07/25 09:00 10/17/25 08:41 0.4 MG Levothyroxine Sodium 125 mcg QAM@0600 PO 10/07/25 06:00 10/17/25 05:35 125 MCG Pantoprazole Sodium 40 mg DAILY@0600 PO 10/09/25 06:00 10/17/25 05:35 40 MG Vancomycin HCl 0 ml @ 0 mls/hr PER PHARMACY IV 10/10/25 18:00 Gabapentin 300 mg TID PO 10/11/25 14:00 10/17/25 14:20 300 MG Hydromorphone HCl 0.25 mg Q4HPRN PRN IV 10/11/25 11:45 10/17/25 04:59 0.25 MG Ampicillin Sodium/ Sulbactam Sodium 3 gm/Sodium Chloride 100 ml @ 100 mls/hr Q6H IV 10/11/25 18:00 10/17/25 11:43 100 MLS/HR Duloxetine HCl 30 mg DAILY PO 10/12/25 10:00 10/17/25 11:43 30 MG Acetaminophen/ Hydrocodone Bitart 1 tab Q4HP PRN PO 10/15/25 11:00 10/17/25 08:41 1 TAB Vancomycin HCl 350 ml @ 200 mls/hr Q24H IV 10/16/25 20:00 10/16/25 20:12 200 MLS/HR Rivaroxaban 20 mg DAILY PO 10/17/25 10:00 10/17/25 11:43 20 MG Examination General Appearance: Alert, Oriented X3, Cooperative, No acute distress HEENT: Atraumatic, PERRLA, EOMI, Mucous membrane moist/pink Respiratory: Clear to auscultation, Normal air movement Cardiovascular: Regular rate, Normal S1, Normal S2, No murmurs, no chest wall tenderness Abdominal: Normal bowel sounds, Soft, No tenderness, No hepatospenomegaly, No masses Extremities: status post I&D, wound dressed and bandage wrapped. Skin: No rashes, No breakdown, No significant lesion Neuro: Normal gait, Normal speech, Strength at 5/5 X4 ext, Normal tone, Sensation intact, Cranial nerves 3-12 NL, Reflexes 2+ Psych/Mental Status: Mental status NL, Mood NL laboratory and microbiology Laboratory Tests 10/17/25 06:29 Test 10/17/25 06:29 Range/Units Serum Glucose 95 74-106 mg/dL Microbiology Date/Time Source Procedure Growth Status 10/14/25 12:41 Leg Right Gram Stain - Final Resulted 10/14/25 12:41 Leg Right Anaerobic Culture - Preliminary No growth Resulted 10/14/25 12:41 Aerobic Culture - Final Methicillin Resistant S.aureus Resulted Problem List/Assessment/Plan Problem List/Assessment/Plan Assessment and plan Eryspelasis Right Leg abscess DVT Acute hypoxic respiratory failure on supplemental oxygen Ruled out PAD Ruled out PE Vancomycin and Unasyn Wound culture +ve for MRSA Admit to med surge telemetry No compressions in the leg Heparin drip stopped. Started Lovenox Negative CT pulmonary angiography Supplemental O2, wean as tolerated Antiemetics Pain management Heparin started in ED, heparin drip Hemoglobin A1c ISS and Accu-Cheks Arterial duplex normal IV fluids Meloxicam PT eval ongoing Status post Incision and drainage Obesity Counseled on the importance of weight loss, exercise and dietary regimen Dyslipidemia Continue home medications Essential hypertension Continue home medications Target in-hospital blood pressure below 140/90 Type 2 diabetes mellitus Target in-hospital blood glucose between 140-180 Follow blood glucose levels History of bilateral knee replacement History of hip replacement Outpatient follow up with PCP on discharge History of partial thyroidectomy Outpatient follow up with PCP on discharge Goals of care discussed full code Case discussed with Dr. Whipple Plan discussed with: Patient My Orders My Orders Orders - SOCORRO ALMODOVAR Procedure Category Date Status Time Complete Blood Count LAB 10/18/25 Verified 04:00 Comprehensive LAB 10/18/25 Verified Metabolic Panel 04:00 Dietary Evaluation Review Comments: Nutrition Recommendation: 1) CCHO 60gm + cardiac diet 2) Monitor PO intake, lab values, weight trend, and I/O Expected Outcomes/Goals: FU 3-5 days Intake to meet >75% estimated needs Lab values to improve Date of Service: Oct 17, 2025 Billing Provider: STEF LI MD Common Visit Codes: [id number] INP/OBS CARE(HIGH) SOCORRO ALMODOVAR Oct 17, 2025 16:18
[2025-10-18 01:00] VITALS: BP 132/83; PULSE 67; RESP 18; TEMP 98.3; O2SAT 93
[2025-10-18 05:00] VITALS: BP 152/87; PULSE 74; RESP 19; TEMP 97.6; O2SAT 95
[2025-10-18 07:10] LABS: Hematocrit 35.4 % (41.0-53.0); Hemoglobin 11.5 g/dL (13.5-17.5); Mean Corpuscular Hemoglobin 27.1 pg (28.0-32.0); Mean Corpuscular Volume 83.2 fL (80.0-100.0); Nucleated Red Blood Cells % 0.0 %
[2025-10-18 07:16] LABS: Alanine Aminotransferase 12 U/L (7-40); Alkaline Phosphatase 69 U/L (46-116); Anion Gap 10 (5-15); BUN/Creatinine Ratio 21.0 (10.0-20.0); Blood Urea Nitrogen 22 mg/dL (9-23); Calcium 8.9 mg/dL (8.7-10.4); Carbon Dioxide 27 mmol/L (20-31); Chloride 105 mmol/L (98-107); Potassium 4.2 mmol/L (3.5-5.1); Sodium 142 mmol/L (136-145); Total Protein 7.7 g/dL (5.7-8.2)
[2025-10-18 07:17] LABS: Albumin 3.8 g/dL (3.2-4.8)
[2025-10-18 07:18] LABS: Bilirubin, Total 0.4 mg/dL (0.2-1.0)
[2025-10-18 07:24] LABS: Glucose 109 mg/dL (74-106)
[2025-10-18 09:00] VITALS: BP 127/89; PULSE 64; RESP 18; TEMP 97.8; O2SAT 96
[2025-10-18 13:00] VITALS: BP 143/96; PULSE 87; RESP 18; TEMP 97.9; O2SAT 96
[2025-10-18 14:52] VITALS: BP 143/96; PULSE 87; RESP 18
--- NOTE | 2025-10-18 15:24 | DVHDSRES ---
Discharge Summary Date of Admission Resident Creating Document: SOCORRO ALMODOVAR RESIDENT Oct 06, 2025 at 13:35 Date of Discharge: Oct 18, 2025 Labs/Diagnostic Data: Laboratory Results Test 10/18/25 11:13 10/18/25 06:14 10/15/25 19:08 10/12/25 09:19 POC Glucose 118 mg/dl (70-106) White Blood Count 5.4 10^3/uL (4.4-10.8) Red Blood Count 4.26 10^6/uL (4.5-5.90) Hemoglobin 11.5 g/dL (13.5-17.5) Hematocrit 35.4 % (41.0-53.0) Mean Corpuscular Volume 83.2 fL (80.0-100.0) Mean Corpuscular Hemoglobin 27.1 pg (28.0-32.0) Mean Corpuscular Hemoglobin Concent 32.6 g/dL (32.0-36.0) Red Cell Distribution Width 15.9 % (11.8-14.3) Platelet Count 215 10^3/uL (140-450) Mean Platelet Volume 6.7 fL (6.9-10.8) Neutrophils (%) (Auto) 66.0 % (37.0-80.0) Lymphocytes (%) (Auto) 17.5 % (10.0-50.0) Monocytes (%) (Auto) 12.8 % (0.0-12.0) Eosinophils (%) (Auto) 3.2 % (0.0-7.0) Basophils (%) (Auto) 0.5 % (0.0-2.0) Neutrophils # (Auto) 3.6 10 ^3/uL (1.6-8.6) Lymphocytes # (Auto) 1.0 10 ^3/uL (0.4-5.4) Monocytes # (Auto) 0.7 10 ^3/uL (0-1.3) Eosinophils # (Auto) 0.2 10 ^3/uL (0-0.8) Basophils # (Auto) 0 10 ^3/uL (0-0.2) Nucleated Red Blood Cells 0.0 % Sodium Level 142 mmol/L (136-145) Potassium Level 4.2 mmol/L (3.5-5.1) Chloride Level 105 mmol/L (98-107) Carbon Dioxide Level 27 mmol/L (20-31) Anion Gap 10 (5-15) Blood Urea Nitrogen 22 mg/dL (9-23) Creatinine 1.05 mg/dL (0.700-1.30) Glomerular Filtration Rate Calc 79 mL/min (>90) BUN/Creatinine Ratio 21.0 (10.0-20.0) Serum Glucose 109 mg/dL (74-106) Calcium Level 8.9 mg/dL (8.7-10.4) Total Bilirubin 0.4 mg/dL (0.2-1.0) Aspartate Amino Transferase (AST) 15 U/L (13-40) Alanine Aminotransferase (ALT) 12 U/L (7-40) Alkaline Phosphatase 69 U/L (46-116) Total Protein 7.7 g/dL (5.7-8.2) Albumin 3.8 g/dL (3.2-4.8) Vancomycin Level Trough 16.8 ug/mL (5-10) Prothrombin Time 11.4 sec (9.3-11.8) Prothrombin Time INR 1.08 (0.9-1.15) Activated Partial Thromboplast Time 64.0 SEC (24.5-34.5) Test 10/12/25 07:10 10/06/25 14:24 10/06/25 12:38 Platelet Estimate Decreased Clumped Platelets Present Urine Color Light-yellow (Yellow) Urine Clarity Clear (Clear) Urine pH 5.5 (5.0-9.0) Urine Specific [place] 1.024 (1.001-1.035) Urine Protein Negative (Negative) Urine Ketones Negative (Negative) Urine Blood 1+ /uL (Negative) Urine Nitrite Negative (Negative) Urine Bilirubin Negative (Negative) Urine Urobilinogen Normal mg/dL (Negative) Urine Leukocyte Esterase Negative /uL (Negative) Urine RBC 5 /hpf (0 - 3) Urine Microscopic WBC 1 /HPF (0-3) Urine Squamous Epithelial Cells None seen /hpf (<5) Urine Bacteria None seen /hpf (None Seen) Urine Glucose 4+ mg/dL (Normal) Urine Opiates Screen Neg (NEGATIVE) Urine Fentanyl Screen Neg (NEGATIVE) Urine Barbiturates Screen Neg (NEGATIVE) Urine Phencyclidine Screen Neg (NEGATIVE) Urine Amphetamines Screen Neg (NEGATIVE) Urine Benzodiazepines Screen Neg (NEGATIVE) Urine Cocaine Screen Neg (NEGATIVE) Urine Cannabinoids Screen Pos (NEGATIVE) Hemoglobin A1c 6.5 % A1C (<5.7) Troponin I High Sensitivity < 3 ng/L (</=54) B-Type Natriuretic Peptide 47.07 pg/mL (0-100) Other Laboratory Tests 10/18/25 06:14 Brief Hx & Hospital Course: Hany Bach is a 64-year-old male with past medical history of DVT in 1999 and in 2014 now on Xarelto, diabetes mellitus, hypertension, dyslipidemia, depression presented with complaints of pain and swelling in the right lower limb since Friday. He had a swelling in the right groin initially. Patient says that he put a compression stocking in and when he removed 2 days later he noticed the redness and swelling in the calf. He had an episode of epistaxis and bleeding from the foot in the past week so he had stopped the Xarelto. Venous ultrasound revealed partially occlusive thrombus in the superficial femoral vein and popliteal vein. arterial ultrasound revealed no significant stenosis. Patient was started on heparin drip and later with Eliquis. He developed erysipelas and abscess in the same extremity. Patient was treated with IV antibiotics. Abscess was drained by the surgeon. Pain management was done for intractable pain following the procedure. During the course of the hospitalization, the patient improved clinically and is hence being discharged. Discharge plan Follow up with PCP in 7 days Follow up with surgery Clinic in 7 days Continue twice daily local wound care Continue Bactrim for 7 days. Continue Xarelto Continue home medications Condition at Discharge: Fair Final Diagnosis/Problems List S/P I&D right lower leg abscess Right Leg abscess DVT Acute hypoxic respiratory failure Eryspelasis Ruled out PAD Ruled out PE Obesity Dyslipidemia Essential hypertension Type 2 diabetes mellitus History of bilateral knee replacement History of hip replacement History of partial thyroidectomy Discharge Disposition: Home Discharge Instruct/Medications Diet: Consistent carbohydrate Activity: No Restrictions, As Tolerated Follow Up/Referral: Follow up with PCP in 7 days Follow up in surgeon in the clinic in 7 days Medications: As per EHR Scheduled Acetaminophen (Tylenol), 325 MG PO QID Amlodipine Besylate (Amlodipine Besylate), 1 TAB PO DAILY, (Reported) Hctz (Hydrochlorothiazide), 1 TAB PO DAILY, (Reported) Levothyroxine Sodium (Levothyroxine Sodium), 1 TAB PO DAILY, (Reported) Lisinopril (Lisinopril), 1 TAB PO DAILY, (Reported) Omeprazole (Gnp Omeprazole), 1 TAB PO DAILY, (Reported) Pantoprazole Sodium Sesquihydr (Protonix), 40 MG PO DAILY Rivaroxaban (Xarelto), 1 TAB PO DAILY, (Reported) Sertraline Hcl (Sertraline Hcl), 1 TAB PO DAILY, (Reported) Sulfamethoxazole W/Trimethopri (Bactrim Ds Tablet), 1 TAB PO BID Tamsulosin Hcl (Tamsulosin Hcl), 1 CAP PO BID, (Reported) Scheduled PRN Hydrocodone-Acetaminophen (Hydrocodone Bitartrate/AC 10-325 mg), 1 TAB PO QIDP PRN Naproxen Sodium (Anaprox Ds), 550 MG PO BID PRN Miscellaneous Medications Gabapentin (Gabapentin), CAP PO, (Reported) Rosuvastatin Calcium (Rosuvastatin Calcium), 1 TAB PO, (Reported) Discharge Statement: "Patient was advised to return to the ER or call 911 if any headaches, dizziness, shortness of breath, chest pain, abdominal pain, bleeding, fevers, or worsening of medical condition. Patient was counseled about treatment plan, medications, possible side effects, patientverbalized understanding. All questions were answered to the best of my ability. This discharge took greater then 30 minutes in planning, reviewing documentation, counseling the patient, and discussing with other team members." ASSESSMENT ASSESSMENT Assessment DVT Right Leg abscess S/P I&D Visit Coding STANDARD RES Billing Provider: STEF LI MD Date of Service if different f: Oct 18, 2025 Common Visit Codes: [id number] DISCH DAY >30min SOCORRO ALMODOVAR RESIDENT Oct 18, 2025 15:24
== END 2025-10-18 16:30 | disposition home or self-care (01) | DRG 602 ==
LOC: ER 11:40 → OVERFLOW 13:35 → CENTRAL 13:37 → EAST 19:00 → CENTRAL 10-07 08:27 → TELE-CENTR 10-07 12:26 → CENTRAL 10-11 11:08
PROVIDERS: ADMIT Student in an Organized Health Care Education/Training Program; ATTEND Student in an Organized Health Care Education/Training Program
PROC: 0J9N0ZX Drainage of Right Lower Leg Subcutaneous Tissue and Fascia, Open Approach, Diagnostic (ICD-10-PCS; principal; 2025-10-14 12:22)
DX: L03.115 Cellulitis of right lower limb (principal); J96.01 Acute respiratory failure with hypoxia; M72.6 Necrotizing fasciitis; I82.411 Acute embolism and thrombosis of right femoral vein; A46 Erysipelas; E66.9 Obesity, unspecified; E11.9 Type 2 diabetes mellitus without complications; I82.431 Acute embolism and thrombosis of right popliteal vein; L02.415 Cutaneous abscess of right lower limb; L08.9 Local infection of the skin and subcutaneous tissue, unspecified; I10 Essential (primary) hypertension; E78.5 Hyperlipidemia, unspecified; Z96.653 Presence of artificial knee joint, bilateral; Z80.0 Family history of malignant neoplasm of digestive organs; Z96.649 Presence of unspecified artificial hip joint; Z82.0 Family history of epilepsy and other diseases of the nervous system
CPT/HCPCS: 36415; 73701; 76881; 80048; 80053; 80202; 80307; 81001; 82565; 82962; 83036; 83880; 84484; 85025; 85610; 85730; 87070; 87075; 87077; 87186; 87205; 93926; 93971; 96365; 96375; 96376; 97110; 97116; 97163; 97530; G0378; J0131; J1815; J1885; J2405; J2543; J2704